=== PATIENT | female | born 1960 | race Caucasian/White ===

== ENCOUNTER 2016-09-10 20:08 | Inpatient (IN) | payer OTHER ==
[~2016-09-10] VITALS: Ht 165.1 cm; Wt 82.0 kg
[2016-09-10] VITALS (8 sets, daily range): BP systolic 93–116; BP diastolic 56–74; PULSE 100–133; RESP 21–42; O2SAT 90–96
--- NOTE | 2016-09-10 20:10 | ED.REPORT ---
HPI-General Illness Date of Service Sep 10, 2016 ED Provider: Dr. Stanton Pt is a 56 y/o female w/ a hx of MIx2 s/p stents x6, CHF, HTN, presenting to the ED via EMS c/o sudden onset SOB 1 hour ago. She was sitting watching TV when she experienced sudden onset SOB and called EMS. EMS reports the pt was at 60% O2 saturation on room air upon their arrival. She was placed on BiPAP with good oxygen re-saturation. She has been having shaking chills all day today but otherwise she feels normal. She denies CP, recent illness, fever, cough. She denies recent surgeries or long periods of immobilization. Her previous RI's were accompanied by similar symptoms. She had chicken noodle soup at 1300 today and believes there was too much salt in it. Nursing Notes Stated Complaint: SHORTNESS OF BREATH Nursing Notes Reviewed: Yes Allergies: Coded Allergies: No Known Allergies (Verified Allergy, Unknown, 12/26/14) General Time Seen by MD: 20:09 Chief Complaint Other (SOB) Hx Obtained From: Patient, EMS Arrived By: Ambulance Sudden in Onset?: Yes Onset Occurred: 1 - 4 hours ago Symptom Duration: Since onset Severity: Current: No pain currently Severity: Maximum: No pain Recent Healthcare: Previous diagnosis Similar Sx Previous: Yes Past Medical History Past Medical History RI x2 CAD s/p stents x6 CHF HTN Past Surgical History Cardiac stenting x6 Appendectomy Family History CAD Smoking History Former Smoker Social History Alcohol Use: 1-3 per day Drug Use: Denies drug use Ambulatory Status Independent Review of Systems Full Review of Systems Constitutional: Reports: Chills, Denies: Fever Respiratory: Reports: Shortness of breath, Denies: Non-productive cough Cardiovascular: Denies: Chest pain GI: Denies: Abdominal pain, Nausea, Vomiting Complete sys rev & neg: except as marked. Physical Exam Vital Signs Vital Signs Date Time Temp Pulse Resp B/P Pulse Ox O2 Delivery O2 Flow Rate FiO2 09/10/16 22:47 100 21 102/60 91 Nasal Cannula 4 09/10/16 22:03 107 22 99/62 96 BiPAP 09/10/16 21:43 118 29 94/67 92 BiPAP 09/10/16 20:58 120 30 94 BiPAP 50 09/10/16 20:57 31 94 50 09/10/16 20:54 127 93/56 1/7/17 20:37 124 33 108/65 91 BiPAP 09/10/16 20:14 37.9 133 42 116/74 90 BiPAP Initial VS: Reviewed Head / Eyes: Atraumatic, Normocephalic, PERRL ENT: Conjunctiva normal, No scleral icterus Neck: Supple, Full range of motion Abdomen / GI: Soft, Non-tender Extremities: Vascular intact, Neuro intact, No swelling, No tenderness Skin: Warm, Dry, No cyanosis Neurologic: Alert, Oriented, Nonfocal Psychiatric: Mood/affect normal, Behavior normal, Normal thought content General/Constitutional: Awake, Alert, Cooperative Distress / Hydration: Positive: Distress severe Respiratory / Chest: Atraumatic, No chest tenderness, No chest wall deformity Resp Distress / Stridor: Positive: Resp distress severe On BiPAP Diffuse wheezes and crackles throughout Cardiovascular: Regular rhythm, Heart sounds NL, No gallop, No murmurs, No rubs , Cap refill not delayed Heart Rate / Rhythm: Positive: Tachycardia Interpretation & Diagnostics Lab Results Interpretation Result Diagram: 09/10/16201409/10/16 2015 Test 09/10/16 20:15 09/10/16 21:15 09/10/16 23:06 White Blood Count 12.1th/mm3 (3.8-10.1) Red Blood Count 5.38mil/mm3 (3.90-5.20) Hemoglobin 16.4g/dL (12.0-15.6) Hematocrit 50.2% (35.0-46.0) Mean Corpuscular Volume 93.3fL (81-100) Mean Corpuscular Hemoglobin 30.5pg (27.0-35.0) Mean Corpuscular Hemoglobin Concent 32.7% (32.0-37.0) Red Cell Distribution Width 12.2% (12.3-15.4) Platelet Count 418bil/L (150-400) Neutrophils (%) (Auto) 87.5% (40-74) Lymphocytes (%) (Auto) 6.5% (14-46) Monocytes (%) (Auto) 3.9% (4-12) Eosinophils (%) (Auto) 1.7% (0-5) Basophils (%) (Auto) 0.2% (0-3) Sodium Level 141mEq/L (134-144) Potassium Level 4.2mEq/L (3.5-5.2) Chloride Level 101mEq/L (97-108) Carbon Dioxide Level 24mmol/L (18-29) Blood Urea Nitrogen 19mg/dL (6-24) Creatinine 0.90mg/dL (0.57-1.00) Estimat Glomerular Filtration Rate 92mL/min (>59) Glucose Level 165mg/dL (60-99) Calcium Level 9.2mg/dL (8.5-10.1) Magnesium Level 1.8mg/dL (1.6-2.6) Total Bilirubin 0.3mg/dL (0.0-1.2) Aspartate Amino Transf (AST/SGOT) 42U/L (0-50) Alanine Aminotransferase (ALT/SGPT) 45U/L (0-32) Alkaline Phosphatase 59U/L (25-150) Troponin T 0.010ug/L (0.0-0.011) Pro-B-Type Natriuretic Peptide 562.1pg/mL (0-287) Total Protein 7.6g/dL (6.4-8.4) Albumin 4.3g/dL (3.4-5.0) Hold Payan Top Tube Received (Received) Urine Color Dark yellow (YELLOW) Urine Appearance Cloudy (CLEAR,HAZY) Urine pH 6.0 (5.0-8.0) Urine Specific [place] 1.020 (1.003-1.035) Urine Protein Tracemg/dL (NEG,TRACE) Urine Glucose (UA) Negativemg/dL (NEGATIVE) Urine Ketones Negativemg/dL (NEGATIVE) Urine Occult Blood Small (NEGATIVE) Urine Nitrite Negative (NEGATIVE) Urine Bilirubin Negative (NEGATIVE) Urine Urobilinogen 1.0mg/dL (NORMAL) Urine Leukocyte Esterase Small (NEGATIVE) Urine RBC 3-10/hpf (0-2) Urine WBC 6-10/hpf (0-5) Urine Epithelial Cells Moderate/hpf (NONE-MOD) Urine Crystals None seen (NONE SEEN) Urine Bacteria Many/hpf (NONE-FEW) Urine Hyaline Casts None/lpf (NONE) Urine Granular Casts None seen (NONE SEEN) Urine Waxy Casts None seen (NONE SEEN) Urine Red Blood Cell Casts None seen (NONE SEEN) Urine White Blood Cell Casts None seen (NONE SEEN) Urine Mucus None seen (None Seen) Urine Trichomonas None seen (NONE SEEN) Urine Yeast None (NONE SEEN) Urine Culture Reflexed Indicated Hold Urine Received (Received) Lactic Acid Level 1.9mmol/L (0.4-2.0) Lab Results Interpretation: ABG: pH: 7.348 pCO2: 42.0 pO2: 74.6 cHCO3: 22.5 ECG Interpretation ECG Interpretation: Sinus tachycardia rate 133 ST depression diffuse leads consistent with ischemia When compared with prior dated 12/27/14, ischemic changes now present Time: 20:15 Interpreted by: ED physician X-Ray Chest Interpretation Chest Xray Interpretation: IMPRESSION: Left midlung and basilar pneumonia Dictated by: Jack Busby M.D. on 09/10/2016 at 20:47 Approved by: Jack Busby M.D. on 09/10/2016 at 20:47 Wet read: Strong suspicion for flash pulmonary edema in the setting of acute heart failure. View: Portable, 1 view Interpretation / Wet Read by: Wet read ED physician, Interpret - Radiologist Re-Eval/Medical Decision Med Decision/Clinical Course 20:55 picture is most consistent with acute pulmonary edema secondary to cardiac event/acute heart failure. History is very consistent with prior events both of which led to stenting. IV Lasix and IV nitroglycerin are started, blood pressure continues to drop with the IV nitroglycerin so it is discontinued at this point. Official chest x-ray read is suggestive of left lower lobe pneumonia we will go ahead and start ceftriaxone however I still think that this is more likely flash pulmonary edema given the clinical history and previous events. I am reluctant to give significant fluid at this point and suspect cardiac etiology rather than sepsis both her being considered. 2315 now off bipap, doing better. 92% on 4L labs and CXR are more suggestive of CAP at this time. On further questioning, she has been having chills today. recently with URI. She has had a "slight cough" for a couple days. NS 1L bolus added and abx expanded to IV zithromax for CAP At this time, ACS/STEMI less likely. Due to the description of the very abrupt onset of sx, I believe cycling enzymes remains appropriate with in pt stay for Left side multilobar pneumonia and acute hypoxic respiratory failure. Time of Eval: 20:55 Re-Evaluation/Progress Note: Pressure dropping to 90 systolic with nitro drip. Now stopping it. Time of Eval: 23:10 Patient Status: Condition improved, Moderate relief Re-Evaluation/Progress Note: Pt rechecked. No longer on BiPAP. She is feeling much better. O2 sat 90% on 4L nasal cannula. Respiratory rate 24-26. Heart rate 98. BP 100/66. Informed pt of need for admission. Pt understands and agrees with plan for admission. All questions addressed. Consultation : Referral / Consult Name: Tawana Cantrell MD Consulted With: Hospitalist Call Returned at: 23:25 Edger Liner: Will see patient, Agrees with eval, Agrees with plan, Accepts admit Counseled Regarding: Diagnosis, Lab results, Need for admission Discharge & Departure Primary Impression: Pneumonia involving left lung Pneumonia type: due to unspecified organism Lung location: lower lobe of lung Qualified Code: J18.9 - Pneumonia, unspecified organism Additional Impressions: Sepsis Sepsis type: sepsis due to unspecified organism Qualified Code: A41.9 - Sepsis, unspecified organism Acute respiratory distress Disposition: ADMITTED TO HOSPITAL Discharge Condition All VS Reviewed: Yes Condition: Stable Crit Care Except Billable Proc Time Spent: 75-104 minutes Services Performed: Patient management by me, Time spent at bedside, Reviewing test results, Reviewing imaging, Discussing patient care, Documentation in record Scribe Attestation Portions of this note were transcribed by Vladimir Leslie. I, Dr. Stanton personally performed the history, physical exam and medical decision-making; I reviewed and confirmed the accuracy of the information in the transcribed note. Signed by Tricia Calloway, 09/10/15 - [id number] Liudmila Stanton MD Sep 10, 2016 20:10 VLADIMIR LESLIE Sep 10, 2016 20:27
[2016-09-10] MEDS ORDERED: Albuterol 2.5 mg/3 mL Inhalation Solution NEB ONE (20:13)
[2016-09-10] MEDS ORDERED: Nitroglycerin 50 mg/250 mL D5W 50,000 MCG in IV Premix 1 EACH IV ONE (20:22)
[2016-09-10 20:35] LABS: BASOPHILS % (AUTO) 0.2 % (0-3); EOSINOPHILS % (AUTO) 1.7 % (0-5); MONOCYTES % (AUTO) 3.9 % (4-12); Mean Corpuscular Hemoglobin 30.5 pg (27.0-35.0); Mean Corpuscular Volume 93.3 fL (81-100); NEUTROPHILS % (AUTO) 87.5 % (40-74); Platelet Count 418 bil/L (150-400)
[2016-09-10] MEDS ORDERED: Furosemide 10 mg/mL 4 mL Inj IVPUSH ONE (20:35)
--- NOTE | 2016-09-10 20:49 | DRSVH ---
PROCEDURE: X-RAY CHEST ONE VIEW, PORTABLE ([id number]) INDICATIONS: acute dyspnea TECHNIQUE: One view of the chest was acquired. COMPARISON: None. FINDINGS: Surgical changes and devices: None. Lungs and pleura: No pleural effusions or pneumothorax. Left midlung and basilar consolidation. Mediastinum: Mediastinal contours appear normal. Heart size is normal. Bones and chest wall: No suspicious bony lesions. Overlying soft tissues appear unremarkable. IMPRESSION: Left midlung and basilar pneumonia Dictated by: Jack Busby M.D. on 09/10/2016 at 20:47 Approved by: Jack Busby M.D. on 09/10/2016 at 20:47
[2016-09-10] MEDS ORDERED: cefTRIAXone Inj 2,000 MG in IV Premix 1 EACH IV ONE (20:55)
[2016-09-10 21:00] LABS: TROPONIN T 0.01 ug/L (0.0-0.011)
[2016-09-10 21:11] LABS: Magnesium 1.8 mg/dL (1.6-2.6)
[2016-09-10 23:19] LABS: APPEARANCE,URINE CLOUDY (CLEAR,HAZY); COLOR,URINE DARK YELLOW (YELLOW); OCCULT BLOOD,URINE SMALL (NEGATIVE)
[2016-09-10] MEDS ORDERED: 0.9% Sodium Chloride 1,000 ML IV ONE (23:20)
[2016-09-10] MEDS ORDERED: Azithromycin Inj 500 MG in Dextrose 5% w/Vial Mate 250 ML IV ONE (23:20)
[2016-09-11] VITALS (10 sets, daily range): BP systolic 89–115; BP diastolic 58–82; PULSE 67–102; RESP 16–24; O2SAT 92–100
[2016-09-11] MEDS ORDERED: Alum-Mag Hydrox-Simeth 30 mL Suspension PO PRN
[2016-09-11] MEDS ORDERED: Albuterol 2.5 mg/3 mL Inhalation Solution NEB PRN
[2016-09-11] MEDS ORDERED: Polyethylene Glycol (PEG) 17 Gm Powder PO PRN
[2016-09-11] MEDS ORDERED: Furosemide 10 mg/mL 4 mL Inj IVPUSH ONE
--- NOTE | 2016-09-11 00:58 | NUR ---
Admit to [facility] rm [id number] Pt admitted to [facility] from ED via stretcher at 0040. Pt oriented to room and facility. Pt denies having pain. On 4L via NC. IV x2 patent. Will be on tele monitoring. Pt ambulates as SBA. in room with pt. Pt on droplet precautions. Will continue with frequent rounding.
--- NOTE | 2016-09-11 01:00 | PCM.HPMED ---
Subjective Date of Service Sep 11, 2016 Primary Provider: Admitting Physician: Tawana Cantrell MD Primary Care Physician: Nadia Metzger PA-C Attending Physician: Tawana Cantrell MD Admit Status: From the Emergency Department, Full Admit, [facility] Telemetry Chief Complaint: Acute onset of shortness of breath History of Present Illness: This is a 56-year-old female who has a history of WA 2 and stents 6. This occurred at [facility] about 5 years ago. Her telecommunications analyst here at [facility] is Dr. Lawton. She was in her usual state of health and watching Pager and suddenly became acutely short of breath. She also was having shaking chills. Was also observed by her . She denies any chest pain. EMS was called and she was found to have a room air sat of 60%. She was placed on BiPAP with good oxygen saturation she does admit to a mild cough today. His any recent sick contacts. She does note that she has had a history of acute congestive heart failure and did not present similarly to this. Her evaluation in the emergency room included a white count of 12.1 troponin of 0.010. There is significant for small leukocyte esterase negative nitrite 3-10 rbc's 6-10 WBCs moderate epithelial cells and many bacteria. Initial ABG was 7.348, PCO2 was 42, PO2 74.6 and bicarbonate 22.5. Chest x-ray revealed left mid lung and basilar pneumonic infiltrate. EKG revealed sinus tachycardia at a rate of [address] depressions noted diffusely. However I have not located the hard copy of his EKG. Review of Systems: All other review of systems are reviewed and are negative except for as in history of present illness. Patient denies any nausea vomiting or alteration in bowel movements or abdominal pain. Denies any urinary frequency or burning. Allergies Coded Allergies: No Known Allergies (Verified Allergy, Unknown, 12/26/14) Home Medications Med reconciliation is not available at the time of this dictation [facility] Past Medical History [place] x2 CAD s/p stents x6 CHF HTN Past Surgical History Cardiac stenting x6 Appendectomy Family History History of father with CABG at age 65 and multiple brothers with a history of hypertension Social History Hx Alcohol Use: No ("I quit drinking two months ago.") Hx Substance Use: No Smoking Status: Former Smoker Living Arrangement: with Family Exam Vital Signs Vital Sign - Last Date Time Temp Pulse Resp B/P Pulse Ox O2 Delivery O2 Flow Rate FiO2 09/10/16 22:47 100 21 102/60 91 Nasal Cannula 4 09/10/16 20:58 50 09/10/16 20:14 37.9 Intake and Output 09/10/16 09/10/16 09/11/16 Cumulative From/Thru 15:00 23:00 07:00 09/10/16 20:14 - 09/10/16 23:35 Intake Total 1000 ml 1000 ml Output Total 200 ml 200 ml Balance -200 ml 1000 ml 800 ml Intake IV Total 1000 ml 1000 ml Output Urine Total 200 ml 200 ml # Voids 2 2 Exam Constitutional: Middle-aged woman in mild respiratory distress Head: Normocephalic atraumatic Eyes: PERRLA DC EOMI Neck: Carotids 2+ over 4 without bruits Chest: Diffuse crackles on the left side and some at the right base Cor: Tachycardic S1-S2 without murmur Abdomen: Soft nontender bowel sounds present Extremities: No pedal edema noted Skin: No rashes Psych: Mood and affect are appropriate Neuro: Alert and oriented 3, motor and sensory are intact bilaterally Lab and Diagnostics Labs Laboratory Tests 72 Hours Test 09/10/16 20:15 09/10/16 21:15 09/10/16 23:06 White Blood Count 12.1th/mm3 (3.8-10.1) Red Blood Count 5.38mil/mm3 (3.90-5.20) Hemoglobin 16.4g/dL (12.0-15.6) Hematocrit 50.2% (35.0-46.0) Mean Corpuscular Volume 93.3fL (81-100) Mean Corpuscular Hemoglobin 30.5pg (27.0-35.0) Mean Corpuscular Hemoglobin Concent 32.7% (32.0-37.0) Red Cell Distribution Width 12.2% (12.3-15.4) Platelet Count 418bil/L (150-400) Neutrophils (%) (Auto) 87.5% (40-74) Lymphocytes (%) (Auto) 6.5% (14-46) Monocytes (%) (Auto) 3.9% (4-12) Eosinophils (%) (Auto) 1.7% (0-5) Basophils (%) (Auto) 0.2% (0-3) Sodium Level 141mEq/L (134-144) Potassium Level 4.2mEq/L (3.5-5.2) Chloride Level 101mEq/L (97-108) Carbon Dioxide Level 24mmol/L (18-29) Blood Urea Nitrogen 19mg/dL (6-24) Creatinine 0.90mg/dL (0.57-1.00) Estimat Glomerular Filtration Rate 92mL/min (>59) Glucose Level 165mg/dL (60-99) Calcium Level 9.2mg/dL (8.5-10.1) Magnesium Level 1.8mg/dL (1.6-2.6) Total Bilirubin 0.3mg/dL (0.0-1.2) Aspartate Amino Transf (AST/SGOT) 42U/L (0-50) Alanine Aminotransferase (ALT/SGPT) 45U/L (0-32) Alkaline Phosphatase 59U/L (25-150) Troponin T 0.010ug/L (0.0-0.011) Pro-B-Type Natriuretic Peptide 562.1pg/mL (0-287) Total Protein 7.6g/dL (6.4-8.4) Albumin 4.3g/dL (3.4-5.0) Hold Payan Top Tube Received (Received) Urine Color Dark yellow (YELLOW) Urine Appearance Cloudy (CLEAR,HAZY) Urine pH 6.0 (5.0-8.0) Urine Specific [place] 1.020 (1.003-1.035) Urine Protein Tracemg/dL (NEG,TRACE) Urine Glucose (UA) Negativemg/dL (NEGATIVE) Urine Ketones Negativemg/dL (NEGATIVE) Urine Occult Blood Small (NEGATIVE) Urine Nitrite Negative (NEGATIVE) Urine Bilirubin Negative (NEGATIVE) Urine Urobilinogen 1.0mg/dL (NORMAL) Urine Leukocyte Esterase Small (NEGATIVE) Urine RBC 3-10/hpf (0-2) Urine WBC 6-10/hpf (0-5) Urine Epithelial Cells Moderate/hpf (NONE-MOD) Urine Crystals None seen (NONE SEEN) Urine Bacteria Many/hpf (NONE-FEW) Urine Hyaline Casts None/lpf (NONE) Urine Granular Casts None seen (NONE SEEN) Urine Waxy Casts None seen (NONE SEEN) Urine Red Blood Cell Casts None seen (NONE SEEN) Urine White Blood Cell Casts None seen (NONE SEEN) Urine Mucus None seen (None Seen) Urine Trichomonas None seen (NONE SEEN) Urine Yeast None (NONE SEEN) Urine Culture Reflexed Indicated Hold Urine Received (Received) Lactic Acid Level 1.9mmol/L (0.4-2.0) Result Diagram: 09/10/16201409/10/162014 X-Rays, CTs and MRIs Patient Name: ELVIS FELIX MR#: [id number] Location: [facility] [place] Ordering Phys: Liudmila Stanton MD Date of Service: 09/10/162017 PROCEDURE: X-RAY CHEST ONE VIEW, PORTABLE ([id number]) INDICATIONS: acute dyspnea TECHNIQUE: One view of the chest was acquired. COMPARISON: None. FINDINGS: Surgical changes and devices: None. Lungs and pleura: No pleural effusions or pneumothorax. Left midlung and basilar consolidation. Mediastinum: Mediastinal contours appear normal. Heart size is normal. Bones and chest wall: No suspicious bony lesions. Overlying soft tissues appear unremarkable. IMPRESSION: Left midlung and basilar pneumonia Dictated by: Jack Busby M.D. on 09/10/2016 at 20:47 Approved by: Jack Busby M.D. on 09/10/2016 at 20:47 12-lead ECG Twelve-lead EKG is not located and will order a new one for my review. Assessment & Plan # Acute dyspnea with respiratory failure and hypoxia requiring initially BiPAP support, acute, present on admission Possible pneumonic infiltrate versus atypical pulmonary edema We will treat with IV Rocephin and azithromycin for first possibility check sputum studies Check PCR respiratory panel placed in droplet precautions We will also treat with IV Lasix for possible acute pulmonary edema Check serial troponins Check echocardiogram Repeat EKG We will also check stat CTA of chest PE protocol for further evaluation # Possible urinary tract infection Patient will be on IV Rocephin as above Send urine for culture # VT prophylaxis Placed on subcutaneous Lovenox # CODE STATUS Full code Pain Evaluation: Adequate Pain Control GI Prophylaxis: H2 marlene VTE Prophylaxis: Sub-Q Enoxaparin VTE Mechanical Devices: Intermittant Pneumatic CD Resuscitation Status: CPR: Attempt Resuscitation Time spent 40 minutes Tawana Cantrell MD Sep 11, 2016 01:00
[2016-09-11] MEDS: Sodium Chloride LOK Flush 10 mL Syringe IVFLUSH SCH ×4 (01:18→20:54)
[2016-09-11 01:20] LABS: BASOPHILS % (AUTO) 0.1 % (0-3); EOSINOPHILS % (AUTO) 0.2 % (0-5); MONOCYTES % (AUTO) 3.7 % (4-12); Mean Corpuscular Hemoglobin 30.6 pg (27.0-35.0); Mean Corpuscular Volume 94.1 fL (81-100); NEUTROPHILS % (AUTO) 89.4 % (40-74); Platelet Count 277 bil/L (150-400)
[2016-09-11 02:13] LABS: Magnesium 1.7 mg/dL (1.6-2.6)
[2016-09-11 02:17] LABS: TROPONIN T 0.219 ug/L (0.0-0.011)
--- NOTE | 2016-09-11 02:40 | NUR ---
Troponin Called recd from lab re TNI of 0.219. Pt asymptomatic. VS rechecked and stable. made aware-will recheck in the AM. Will continue to monitor.
--- NOTE | 2016-09-11 05:36 | NUR ---
Temp/LUNA pt c/o LUNA (01/11)and temp 38.8 noted. MD notified. PO Tylenol ordered, waiting on pharmacy Will continue with frequent rounding
[2016-09-11] MEDS ORDERED: Heparin 25K Unit/500mL 0.45 NS 25,000 UNIT in IV Premix 1 EACH IV SCH (06:20)
[2016-09-11] MEDS ORDERED: Heparin 5,000 Unit/mL Inj IVPUSH ONE ×2 (06:20→06:35)
[2016-09-11] MEDS ORDERED: Heparin 5,000 Unit/mL Inj IVPUSH PRN (06:20)
[2016-09-11 08:14] LABS: BASOPHILS % (AUTO) 0.1 % (0-3); EOSINOPHILS % (AUTO) 0.3 % (0-5); MONOCYTES % (AUTO) 6.1 % (4-12); Mean Corpuscular Hemoglobin 30.1 pg (27.0-35.0); Mean Corpuscular Volume 92.6 fL (81-100); NEUTROPHILS % (AUTO) 83.5 % (40-74); Platelet Count 250 bil/L (150-400)
--- NOTE | 2016-09-11 08:32 | DRSVH ---
PROCEDURE: CT ANGIO CHEST PULMONARY EMBOLISM ([id number]) INDICATIONS: dyspnea TECHNIQUE: After the administration of intravenous contrast, 2 mm thick sections acquired from the pulmonary api yash to the posterior costophrenic angles. 3-dimensional maximum intensity projection (MIP) coronal a nd sagittal reformats were then acquired through the thorax. For radiation dose reduction, the follo wing was used: automated exposure control, adjustment of mA and/or kV according to patient size. COMPARISON: No current chest x-rays within the PACS system. FINDINGS: Image quality: Excellent. Pulmonary arteries: Pulmonary arteries are normal in size, and demonstrate no intraluminal filling d efects to suggest central pulmonary embolism. Lungs and pleura: Left upper and lower moderate to prominent patchy areas of density are present cons istent with pneumonia. Right lung is nearly clear with some minimal infiltrate and subsegmental atele ctasis at the right base.. No pleural effusions or pneumothorax. Central and peripheral airways are patent. Mediastinum: Heart size is normal, without pericardial effusion. There are prominent right hilar and subcarinal lymph nodes. There is no old study to compare.. Thoracic aorta is normal in caliber and enhancement. Esophagus is normal in caliber, without hiatal hernia. Bones and chest wall: No suspicious bony lesions. Ribs and thoracic spine appear intact throughout. Thyroid gland is within normal limits. No axillary or supraclavicular adenopathy. Abdomen: Visualized upper abdominal solid organs appear normal in the early arterial phase of enhanc ement. IMPRESSION: 1. Extensive ground glass appearance in the left lung most consistent with pneumonia. Right lung is g enerally clear with a small amount of disease at the right base as well as subsegmental atelectasis a t the right base 2. Prominent right hilar and subcarinal lymph nodes of unknown etiology. Dictated by: Oleg Garcia M.D. on 09/11/2016 at 8:30 this report corresponds to the findings of e preliminary NSR report. Approved by: Oleg Garcia M.D. on 09/11/2016 at 8:30
[2016-09-11] MEDS: Heparin 25K Unit/500mL 0.45 NS 25,000 UNIT in IV Premix 1 EACH IV SCH (09:40)
[2016-09-11] MEDS ORDERED: POTA10TA12 PO (09:50)
[2016-09-11] MEDS ORDERED: CLOP75TA28 PO (09:50)
[2016-09-11] MEDS ORDERED: FURO-128 PO (09:50)
[2016-09-11] MEDS ORDERED: ATOR80TA77 PO (09:50)
[2016-09-11] MEDS ORDERED: CITA40TA13 PO (09:50)
[2016-09-11] MEDS ORDERED: METO-274 PO ×2 (09:50)
[2016-09-11] MEDS ORDERED: LISI-567 PO (09:50)
[2016-09-11] MEDS ORDERED: ASPI-973 PO (09:50)
[2016-09-11] MEDS ORDERED: FENO160T14 PO (09:50)
--- NOTE | 2016-09-11 10:12 | NUR ---
Social Work: Screening Data: Pt is a 56 y/o female admitted for pneumonia. Pt's PCP is Dr Metzger, pt's insurance is [facility]. EMR reviewed, pt discussed in rounds. No d/c planning needs anticipated at this time. TECHNICAL EXPERT will continue to follow if needs arise. Assessment: Pt who is independent at baseline. Plan: Pt will likely d/c home via POV when medically stable. No d/c planning needs anticipated at this time. TECHNICAL EXPERT will continue to follow if needs arise. DALILA Dean
[2016-09-11] MEDS ORDERED: 0.9% Sodium Chloride 1,000 ML IV ONE (11:55)
[2016-09-11] MEDS: Heparin 5,000 Unit/mL Inj IVPUSH PRN (15:48)
--- NOTE | 2016-09-11 16:43 | NUR ---
Heparin Drip Cardiac heparin drip started per protocol. aPTT drawn prior to administration. Current rated 1200units/hr (24 mls/hr).
--- NOTE | 2016-09-11 18:24 | PCM.PNMED ---
Subjective Date of Service Sep 11, 2016 Subjective Overnight: T38.8, APAP given Today: States she feels well, no SOB, CP. Tolerated echo. Denies any current cough. Tolerating po well. Exam Vital Signs Vital Sign - Last Date Time Temp Pulse Resp B/P Pulse Ox O2 Delivery O2 Flow Rate FiO2 09/11/16 17:35 36.9 72 18 108/62 94 Nasal Cannula 2.00 09/10/16 20:58 50 Intake and Output 09/10/16 09/10/16 09/11/16 Cumulative From/Thru 15:00 23:00 07:00 09/10/16 20:14 - 09/11/16 05:16 Intake Total 1350 ml 1350 ml Output Total 200 ml 1620 ml 1820 ml Balance -200 ml -270 ml -470 ml Intake Oral 350 ml 350 ml IV Total 1000 ml 1000 ml Output Urine Total 200 ml 1620 ml 1820 ml # Voids 2 2 Exam General: AAOx3; pleasant, cooperative; no acute distress HENT: Atraumatic; sclera anicteric; mucus membranes moist Neck: Soft, trachea midline Cardiac: Regular rate, regular rhythm Respiratory: Faint bibasilar crackles; adequate air flow all aguilar Abdomen: Soft, nondistended Extremities: No edema Skin: Warm and dry Neuro: CNII-XII grossly intact; speech normal; facial expressions symmetric Psych: Appropriate mood, affect, and responses to questioning Lab and Diagnostics Result Diagram: 09/11/16 0807 09/11/16 0100 X-Rays, CTs and MRIs Patient Name: ELVIS FELIX MR#: [id number] Location: [facility] [place] Ordering Phys: Liudmila Stanton MD Date of Service: 09/10/162017 PROCEDURE: X-RAY CHEST ONE VIEW, PORTABLE ([id number]) INDICATIONS: acute dyspnea TECHNIQUE: One view of the chest was acquired. COMPARISON: None. FINDINGS: Surgical changes and devices: None. Lungs and pleura: No pleural effusions or pneumothorax. Left midlung and basilar consolidation. Mediastinum: Mediastinal contours appear normal. Heart size is normal. Bones and chest wall: No suspicious bony lesions. Overlying soft tissues appear unremarkable. IMPRESSION: Left midlung and basilar pneumonia Dictated by: Jack Busby M.D. on 09/10/2016 at 20:47 Approved by: Jack Busby M.D. on 09/10/2016 at 20:47 12-lead ECG Twelve-lead EKG is not located and will order a new one for my review. Assessment & Plan Ms. Rissa Galeas is a pleasant 56 year old woman with history of CAD s/p multiple stent placements and ND, that presented to [facility] with acute onset SOB at rest without inciting factors. She was admitted for evaluation and treatment of acute respiratory failure. - Hospital day 2 Sepsis, acute, present on admission. Under therapy, improved - On admit: P133, WBC12.1, R42 - Suspected source: PNA - 1L NS bolus given - Treat underlying cause Acute hypoxemic respiratory failure, present on admission. Improving - Suspected etiologies included: PE, URI, ND, CHF exacerbation, PTX, PNA - CXR 09/10: Left midlung and basilar pneumonia - CTA 09/10: Extensive ground glass appearance in the left lung most consistent with pneumonia. Right lung is generally clear with a small amount of disease at the right base as well as subsegmental atelectasis at the right base; Prominent right hilar and subcarinal lymph nodes of unknown etiology. - Trend troponin - Treat underlying cause Elevated troponin of undetermined significance, likely acute, present on admission. Ongoing - May be demand ischemia vs NSTEMI - On admit: 0.010; repeated values elevated at 0.219, 0.237, 0.093 - Repeat in am - EKG in am - cardiology consulted; appreciate time and recommendations - Consider lexiscan when troponin normalize/decrease - Continue heparin gtt Suspected PNA, acute, present on admission. Under therapy - CXR as above - Resp PCR: NEGATIVE - Strep pneu Ur: negative - Abx: Ceftriaxone 2g q24h + azithromycin 500mg daily - PRN: - DVT: Hep gtt - GI: None - DIET: Heart healthy - CODE: FULL CODE Dispo: Likely to remain additional 1-2 days pending medical stability. No anticipated needs at this time. GI Prophylaxis: H2 marlene VTE Prophylaxis: Sub-Q Enoxaparin VTE Mechanical Devices: Venous Foot Pump Resuscitation Status: CPR: Attempt Resuscitation Attending Statement The patient was seen and examined together with Dr. Barakat on 09/11/2016 and I agree with the history, exam and plan as outlined in the note above. Ktaie Barakat DO Sep 11, 2016 18:24 German Stein MD Sep 12, 2016 09:12
[2016-09-11] MEDS ORDERED: 0.9% Sodium Chloride 250 ML ONE (20:04)
[2016-09-11] MEDS: cefTRIAXone Inj 2,000 MG in IV Premix 1 EACH IV SCH (20:09)
--- NOTE | 2016-09-11 20:29 | DRSVH ---
[facility] [address] [place] [address] Echocardiogram Report Name: ELVIS HUYNH MStudy Date: 09/11/2016 Height: 65 in Hospital Exam Location: [facility] Weight: 190 lb Gender: Female BSA: 1.9 m2 : 1960 Age: 56 yrs BP: 108/67 mmHg Reason For Study: Dyspnea Ordering Physician: HOSPITALIST [facility] Performed By: Cirilo Borges Referring Physician: FAVIAN ARRIAZA Interpretation Summary The left ventricle is mildly dilated. Left ventricular systolic function is moderately reduced. The ejection fraction is estimated to be 40-45%. There is akinesis along the mid/distal inferolateral, and hypokinesis along the anterior, part of apical, and mid and distal anteroseptal wall. Comparing to prior echo report, LVEF and LV wall motion are similar. Assessment of diastolic parameters indicates a relaxation abnormality of the left ventricle, consistent with normal filling pressures. The right ventricle is normal in size, thickness and function. Pulmonary artery pressures cannot be estimated because of the lack of a measurable TR jet velocity. The left atrium is mildly dilated. Right atrial size is normal. There is no significant valvular heart disease. The ascending aorta is mildly enlarged. Procedure: A two-dimensional transthoracic echocardiogram with color flow and Doppler was performed. The study quality was technically adequate. A contrast injection of Definity was performed to improve assessment of LV function. There is no prior echocardiogram noted for this patient. The patient was in normal sinus rhythm during the exam. The heart rate ranged between 75-80 bpm during the study. Left Ventricle: The left ventricle is mildly dilated. Left ventricular wall thickness is borderline increased. Left ventricular systolic function is moderately reduced. The ejection fraction is estimated to be 40-45%. There is akinesis along the mid/distal inferolateral, and hypokinesis along the anterior, part of apical, and mid and distal anteroseptal wall. Assessment of diastolic parameters indicates a relaxation abnormality of the left ventricle, consistent with normal filling pressures. Right Ventricle: The right ventricle is normal in size, thickness and function. Atria: The left atrium is mildly dilated. Right atrial size is normal. The interatrial septum is intact with no evidence for an atrial septal defect. Mitral Valve: The mitral valve is grossly normal. There is no mitral regurgitation noted. Aortic Valve: The aortic valve is grossly normal. No aortic regurgitation is present. Tricuspid Valve: The tricuspid valve is not well visualized, but is grossly normal. Pulmonary artery pressures cannot be estimated because of the lack of a measurable TR jet velocity. Pulmonic Valve: The pulmonic valve is not well seen, but is grossly normal. There is no pulmonic valvular regurgitation. There is no significant valvular heart disease. Great Vessels: The aortic root is normal size. The ascending aorta is mildly enlarged. The aortic arch is at the upper limits of normal in size. The pulmonary artery is normal size. The IVC is of normal diameter and collapses greater than 50% with a sniff. This suggests a low right atrial pressure of 3 mm Hg. Pericardium/ Pleura There is no pericardial effusion. There is no pleural effusion. MMode/2D Measurements & Calculations LVIDd: 5.5 cm RA long axis: 4.3 cm LVOT diam: 2.1 cm LVIDs: 4.1 cmLA A2 area: 19.8 cm AoV Openin.6 cm FS: 26.4 % LA A4 area: 18.8 cm RA area: 12.4 cm Ao root diam: 3.0 cm EPSS: 0.69 cmLA length (vol) RA vol: 30.4 ml asc Aorta Diam IVSd: 1.0 cm RA : 15.7 ml/m2 LVPWd LA vol: 70.2 ml Ao Arch Diam : 0.9cm LA vol index (Proximal trans.) : 36.3 ml/m2 EDV(MOD-sp2) LV mason. diameter/BSA LV sys. diameter/BSA : 135.7 ml (cm/m^2): 2.9 (cm/m^2): 2.1 Doppler Measurements & Calculations Ao V2 max: 133.6 cm/secMV E max miguel MV E/A: 0.87 PA V2 max Ao max P.1 mmHg : 75.9 cm/sec Med Peak E' Miguel : 91.6 cm/sec Ao mean P.2 mmHg MV A max miguel PA mean PG LVOT Max Miguel : 87.3 cm/sec E/E' med: 15.0 : 1.8 mmHg : 98.4 cm/sec Lat Peak E' Miguel KANE(I,D): 2.5 cm E/E' lat: 13.4 sev ratio: 0.73 MV A dur: 0.11 sec MV dec time: 0.21 sec Ao V2 mean LV V1 max PG PA V2 mean : 100.1 cm/sec : 65.2 cm/sec Ao V2 VTI: 25.6 cm LV V1 VTI: 18.6 cmPA pr(Accel) : 49.4 mmHg KANE(V,D): 2.5 cm2 KANE indexed to BSA E/e' average (cm^2/m^2): 1.3 : 14.2 Reading Physician:CASA
--- NOTE | 2016-09-11 20:30 | PCM.CHPCAR ---
Consult Subjective Date of service Sep 11, 2016 Date of admit Sep 11, 2016 at 00:00 Provider Requesting Consult Requesting Provider: LORENA BAEZ HOSPITALIST Primary Care Physician Primary Care Provider: Nadia Metzger PA-C Chief Complaint Acute SOB History of Present Illness This is a 56 y/o female with known CAD. She was seen by a mexican food maker back in early 2011 at [facility] for NSTEMI. She was smoking up to this point but quit. She was taken to the vat house laborer and her left ventriculogram showed an EF around 40% with LVWMAs. She had a total occluded OM with distal filling indicative of collaterals. This was fixed with PCI and her other significant lesions in her LAD and RCA were left alone and the idea was to proceed with an outpatient stress test. But, apparently she came back in Fall of 2011 with another NSTEMI and had multiple REESE to her LAD and RCA. She has been fine since then. She went to see Dr. Lawton to establish with mexican food maker in 2013 but she has not followed up with him since. She was watching the [employer] game last night and apparently developed sudden SOB at rest. She present to our ER and her CXR was completed and was thought that she was having flash pulmonary edema. She eventually was sent for CT scan to rule PE which was negative but lung aguilar showed that findings were more consistent with pneumonia than CHF. When she first arrived she was only saturating around 60%. She was started on BiPAP and her O2 sats improved to >90%. Her EKG showed some subtle ST depressions in multiple leads but was not particularly impressive. She was initially started on IV nitro and IV Lasix since it was thought her presentation was consistent with acute CHF but her BP dropped, so her IV nitro was discontinued. She has been started on IV abx. Microbiology lab work shows no evidence for influenza. She denied any chest pain during this presentation. On further interrogation by hospitalist, she does admit to chills and cough yesterday. Patient works on a farm and up to yesterday she had no complaints of SOB or chest pain on exertion. Review of Systems Review of Systems All other review of systems are reviewed and are negative except for as in history of present illness. PMH Past Medical History NSTEMI x2 CAD s/p stents x6 (REESE x1 to OM, REESE x3 to LAD, REESE x2 to RCA) Ischemic cardiomyopathy HTN Hyperlipidemia Obesity Scheduled Aspirin (Aspirin) 81 Mg Tablet 81 MG PO MORNING (Reported) Atorvastatin Calcium (Atorvastatin Calcium) 80 Mg Tablet 80 MG PO HS (Reported) Citalopram (Citalopram) 40 Mg Tablet 20 MG PO DAILY (Reported) Clopidogrel (Clopidogrel) 75 Mg Tablet 75 MG PO HS (Reported) Fenofibrate (Fenofibrate) 160 Mg Tablet 160 MG PO HS (Reported) Furosemide (Lasix) 40 Mg Tablet 40 MG PO DAILY (Reported) Lisinopril (Lisinopril) 20 Mg Tablet 20 MG PO MORNING (Reported) Metoprolol Succinate ER (Metoprolol Succinate ER) 100 Mg Tab.er.24h 50 MG PO MORNING (Reported) Metoprolol Succinate ER (Metoprolol Succinate ER) 100 Mg Tab.er.24h 100 MG PO HS (Reported) Potassium Chloride ER (Potassium Chloride ER) 10 Meq Tablet 20 MEQ PO DAILY ( Reported) Current Inpatient Medications Current Medications Enoxaparin Sodium 40 mg DAILY SUBQ; Start 09/11/16 at 08:30; Stop 09/11/16 at 08: 30; Status DC Albuterol 2.5 mg 2.5 mg Q2H PRN NEB; Start 09/11/16 at 00:00 Ceftriaxone Sodium/Dextrose 2000 mg/Premix 50 ml @ 100 mls/hr Q24H IV; Start at 21:00 Azithromycin/ Dextrose/Water 250 ml @ 250 mls/hr Q24H IV; Start 09/11/16 at 23: 00 Sodium Chloride 10 ml NADER IVFLUSH Last administered on 09/11/16 01:18; Admin Dose 10 ML; Start 09/11/16 at 00:30 Al Hydrox/Mg Hydrox/Simethicone 30 ml Q6H PRN PO; Start 09/11/16 at 00:00 Senna 17.2 mg BID PRN PO; Start 09/11/16 at 00:00 Polyethylene Glycol 17 gm DAILY PRN PO; Start 09/11/16 at 00:00 Acetaminophen 650 mg Q4H PRN PO Last administered on 09/11/16 05:49; Admin Dose 650 MG; Start 09/11/16 at 05:45 Heparin Sodium (Porcine) Per Protocol for a... PRN PRN IVPUSH; Start 09/11/16 at 06:20; Stop 09/11/16 at 06:38; Status DC Heparin Sodium (Porcine) Per Protocol for a... PRN PRN IVPUSH; Start 09/11/16 at 06:35 Allergies: Coded Allergies: No Known Allergies (Verified Allergy, Unknown, 12/26/14) Family History Family History There is no family history of premature coronary artery disease. Father Blood clot(s) - lungs at 77 (cause of ); Mother Hypertension, brain aneurysm at 69 Social History Hx Alcohol Use: No ("I quit drinking two months ago.")Hx Substance Use: No Smoking Status: Former Smoker Living Arrangement: with Family Exam Vital Signs Vital Sign - Last Date Time Temp Pulse Resp B/P Pulse Ox O2 Delivery O2 Flow Rate FiO2 09/11/16 10:09 78 09/11/16 09:04 37.0 20 89/58 94 Nasal Cannula 2.00 09/10/16 20:58 50 Intake and Output 09/10/16 09/10/16 09/11/16 Cumulative From/Thru 15:00 23:00 07:00 09/10/16 20:14 - 09/11/16 05:16 Intake Total 1350 ml 1350 ml Output Total 200 ml 1620 ml 1820 ml Balance -200 ml -270 ml -470 ml Intake Oral 350 ml 350 ml IV Total 1000 ml 1000 ml Output Urine Total 200 ml 1620 ml 1820 ml # Voids 2 2 Objective Constitutional: Middle-aged woman in mild respiratory distress Head: Normocephalic atraumatic Eyes: PERRLA DC EOMI Neck: Carotids 2+ over 4 without bruits Chest: Diffuse crackles on the left side and some at the right base Cor: Tachycardic S1-S2 without murmur Abdomen: Soft nontender bowel sounds present Extremities: No pedal edema noted Skin: No rashes Psych: Mood and affect are appropriate Neuro: Alert and oriented 3, motor and sensory are intact bilaterally General: Pleasant Cooperative Mildly obese Skin: Warm & dry to touch Head: Normocephalic Eye: EOMS intact No arcus or xanthelasma Neck: Nuchal obesity:JVP assess difficult No bruits Ears, Nose & Throat: Ears no gross abnormalities Nose no gross abnormalities Chest: Rhonchi Cardiac: Regular rhythm No murmurs Pulses: Pulses full/equal all extremities Abdomen: Soft, non-distended, non-tender Obese Extremities: Warm w/o deformities,erythema noted Neurological: Alert & oriented No gross motor or sensory deficits Psychological: Affect & interaction appropriate Lab and Diagnostics Labs CBC Test 09/11/16 08:07 White Blood Count 6.8th/mm3 (3.8-10.1) Red Blood Count 4.58mil/mm3 (3.90-5.20) Hemoglobin 13.8g/dL (12.0-15.6) Hematocrit 42.4% (35.0-46.0) Mean Corpuscular Volume 92.6fL (81-100) Mean Corpuscular Hemoglobin 30.1pg (27.0-35.0) Mean Corpuscular Hemoglobin Concent 32.5% (32.0-37.0) Red Cell Distribution Width 12.3% (12.3-15.4) Platelet Count 250bil/L (150-400) Neutrophils (%) (Auto) 83.5% (40-74) Lymphocytes (%) (Auto) 9.9% (14-46) Monocytes (%) (Auto) 6.1% (4-12) Eosinophils (%) (Auto) 0.3% (0-5) Basophils (%) (Auto) 0.1% (0-3) CMP Test 09/10/16 20:15 09/10/16 23:06 09/11/16 01:00 09/11/16 06:15 Pro-B-Type Natriuretic Peptide 562.1pg/mL Hold Payan Top Tube Received Lactic Acid Level 1.9mmol/L Sodium Level 141mEq/L Potassium Level 3.7mEq/L Chloride Level 103mEq/L Carbon Dioxide Level 23mmol/L Blood Urea Nitrogen 20mg/dL Creatinine 0.90mg/dL Estimat Glomerular Filtration Rate 92mL/min Glucose Level 145mg/dL Calcium Level 8.0mg/dL Magnesium Level 1.7mg/dL Total Bilirubin 0.2mg/dL Aspartate Amino Transf (AST/SGOT) 33U/L Alanine Aminotransferase (ALT/SGPT) 37U/L Alkaline Phosphatase 43U/L Total Protein 6.1g/dL Albumin 3.5g/dL Procalcitonin 4.30ng/mL Troponin T 0.237ug/L Triglycerides Level 106mg/dL Cholesterol Level 112mg/dL LDL Cholesterol, Calculated 48.800mg/dL VLDL Cholesterol 21.200mg/dL HDL Cholesterol 42mg/dL Cholesterol/HDL Ratio 2.67 Result Diagram: 09/11/16 0807 09/11/16 0100 X-Rays, CTs and MRIs PROCEDURE: CT ANGIO CHEST PULMONARY EMBOLISM ([id number]) INDICATIONS: dyspnea TECHNIQUE: After the administration of intravenous contrast, 2 mm thick sections acquired from the pulmonary apices to the posterior costophrenic angles. 3-dimensional maximum intensity projection (MIP) coronal and sagittal reformats were then acquired through the thorax. For radiation dose reduction, the following was used: automated exposure control, adjustment of mA and/or kV according to patient size. COMPARISON: No current chest x-rays within the PACS system. FINDINGS: Image quality: Excellent. Pulmonary arteries: Pulmonary arteries are normal in size, and demonstrate no intraluminal filling defects to suggest central pulmonary embolism. Lungs and pleura: Left upper and lower moderate to prominent patchy areas of density are present consistent with pneumonia. Right lung is nearly clear with some minimal infiltrate and subsegmental atelectasis at the right base.. No pleural effusions or pneumothorax. Central and peripheral airways are patent. Mediastinum: Heart size is normal, without pericardial effusion. There are prominent right hilar and subcarinal lymph nodes. There is no old study to compare.. Thoracic aorta is normal in caliber and enhancement. Esophagus is normal in caliber, without hiatal hernia. Bones and chest wall: No suspicious bony lesions. Ribs and thoracic spine appear intact throughout. Thyroid gland is within normal limits. No axillary or supraclavicular adenopathy. Abdomen: Visualized upper abdominal solid organs appear normal in the early arterial phase of enhancement. IMPRESSION: 1. Extensive ground glass appearance in the left lung most consistent with pneumonia. Right lung is generally clear with a small amount of disease at the right base as well as subsegmental atelectasis at the right base 2. Prominent right hilar and subcarinal lymph nodes of unknown etiology. Date of Service: 09/10/162017 PROCEDURE: X-RAY CHEST ONE VIEW, PORTABLE ([id number]) INDICATIONS: acute dyspnea TECHNIQUE: One view of the chest was acquired. COMPARISON: None. FINDINGS: Surgical changes and devices: None. Lungs and pleura: No pleural effusions or pneumothorax. Left midlung and basilar consolidation. Mediastinum: Mediastinal contours appear normal. Heart size is normal. Bones and chest wall: No suspicious bony lesions. Overlying soft tissues appear unremarkable. IMPRESSION: Left midlung and basilar pneumonia 12-lead ECG Sinus tachycardia with ST depressions and wide QRS. Assessment & Plan Problems: (1) Chronic left ventricular systolic dysfunction Plan: Echocardiogram shows no significant changes since prior echo study on 2011. She has chronic LV wall motion abnormalities and no significant valvular heart disease. She is much more comfortable in comparison to last night when she first came in. Her EKG does not indicate any significant ischemia. Her troponins have increased since the initiation of her acute respiratory event. I suspect this is more of a demand ischemic event more so than acute coronary syndrome. Based on her coronary angiogram reports she has diffuse disease elsewhere in her epicardial coronaries which could have contributed to her elevated troponins during her acute respiratory event. I would recommend a Lexiscan sestamibi just prior to discharge or even possibly as an outpatient depending on her hospital course. Continue with IV heparin for 48 hours and resume her preadmission heart medications. She should perform her Lexiscan sestamibi with beta blockers on board to see if her medications are effective in controlling her ischemic heart disease. She has an appointment to see Dr. Lawton in early October. Status: Chronic ICD Code: I51.9 (2) Pneumonia Qualifiers: Pneumonia type: due to unspecified organism Laterality: bilateral Plan: Most likely the culprit for causing her acute respiratory event. Hospitalist is treating her with IV abx. Once her troponins have started to come down, then consider a Lexiscan sestamibi to evaluate her coronary physiology. Again, she should be on beta blockers and other heart medications to assess the efficacy of her medications. Status: Acute ICD Code: J18.9 (3) CAD (coronary artery disease) Qualifiers: Coronary Disease-Associated Artery/Lesion type: [place] artery [place] vs. transplanted heart: [place] heart Associated angina: without angina Qualified Code: I25.10 - Atherosclerotic heart disease of [place] coronary artery without angina pectoris Status: Chronic ICD Code: I25.10 (4) Multi-vessel coronary artery stenosis Status: Chronic ICD Code: I25.10 (5) Presence of stent in coronary artery Plan: 3 REESE to LAD 2 REESE to RCA 1 REESE to OM Status: Chronic ICD Code: Z95.5 (6) Hyperlipidemia Qualifiers: Hyperlipidemia type: Mixed hyperlipidemia Qualified Code: E78.2 - Mixed hyperlipidemia Plan: Continue with atorvastatin 40-80 mg po qhs. Status: Chronic ICD Code: E78.5 (7) Hypertension Qualifiers: Hypertension type: essential hypertension Status: Chronic ICD Code: I10 Pain Evaluation: Adequate Pain Control VTE Prophylaxis: Sub-Q Enoxaparin VTE Mechanical Devices: Venous Foot Pump Resuscitation Status: CPR: Attempt Resuscitation Time spent 80 minutes Copies to: Nadia Metzger PA-C; Lou Anna MD, Oscar J MD Sep 11, 2016 10:54
[2016-09-11] MEDS ORDERED: Azithromycin Inj 500 MG in Dextrose 5% w/Vial Mate 250 ML IV SCH (23:00)
[2016-09-12] VITALS (10 sets, daily range): BP systolic 125–161; BP diastolic 72–84; PULSE 75–97; RESP 16–20; O2SAT 92–97
[2016-09-12] MEDS: Heparin 5,000 Unit/mL Inj IVPUSH PRN ×3 (02:13→23:09)
--- NOTE | 2016-09-12 02:23 | NUR ---
Sats/fever/hep gtt SpO2 in low to mid 90s on 2L O2 via NC. denies SOB at rest or when ambulating. has nonproductive cough. Pt had a fever of 38.8. cool compress and tylenol given. Temp went down to 37.7. IV ABT given per order. Heparin bolus given and gtt was titrated per protocol. no s/s of bleeding at this time.
[2016-09-12 06:59] LABS: BASOPHILS % (AUTO) 0.2 % (0-3); EOSINOPHILS % (AUTO) 2.1 % (0-5); MONOCYTES % (AUTO) 9.6 % (4-12); Mean Corpuscular Hemoglobin 30.3 pg (27.0-35.0); Mean Corpuscular Volume 94.9 fL (81-100); NEUTROPHILS % (AUTO) 69.2 % (40-74); Platelet Count 193 bil/L (150-400)
[2016-09-12 07:20] LABS: Phosphorus 2.1 mg/dL (2.5-4.9)
[2016-09-12] MEDS: Sodium Chloride LOK Flush 10 mL Syringe IVFLUSH SCH ×3 (08:23→22:57)
[2016-09-12] MEDS: Heparin 25K Unit/500mL 0.45 NS 25,000 UNIT in IV Premix 1 EACH IV SCH (08:30)
--- NOTE | 2016-09-12 14:02 | PCM.PNMED ---
Subjective Date of Service Sep 12, 2016 Adriel Bishop had chills with night sweats overnight in addition to a temperature of 38.3 while on Ceftriaxone and Azithromycin. She denies any sputum production. Exam Vital Signs Vital Sign - Last Date Time Temp Pulse Resp B/P Pulse Ox O2 Delivery O2 Flow Rate FiO2 09/12/16 13:15 37.1 75 20 149/84 97 Nasal Cannula 1.50 09/10/16 20:58 50 Intake and Output 09/11/16 09/11/16 09/12/16 Cumulative From/Thru 15:00 23:00 07:00 09/10/16 20:14 - 09/12/16 06:58 Intake Total 2470 ml 550 ml 4370 ml Output Total 1000 ml 1000 ml 3820 ml Balance 1470 ml -450 ml 550 ml Intake Oral 1470 ml 550 ml 2370 ml IV Total 1000 ml 2000 ml Output Urine Total 1000 ml 1000 ml 3820 ml # Voids 2 # Bowel Movements 1 1 Exam General: Well appearing female resting comfortably in her bed upon my entering the room. No acute distress. Supplemental oxygen via nasal cannula at 1.5L/h. No gasping or tripoding. No accessory muscle use HEENT: moist mucus membranes. Sclera anicteric Cardiac: RRR, no murmur, rub, or gallop appreciated Respiratory: Good inspiratory effort. No wheezes or rhonchi. Left sided crackles present. Extremities: No clubbing, cyanosis, or edema bilaterally Neuro: Awake, alert and oriented. Moves all 4 extremities with ease. Able to sit up completely without any assistance. IVs and Medications Medications Reviewed: Medications were reviewed in detail Lab and Diagnostics Result Diagram: 09/12/16 0632 09/12/16 0632 Microbiology Respiratory PCR negative Strep pneumo urine Ag negative X-Rays, CTs and MRIs PROCEDURE: X-RAY CHEST ONE VIEW, PORTABLE ([id number]) FINDINGS: Surgical changes and devices: None. Lungs and pleura: No pleural effusions or pneumothorax. Left midlung and basilar consolidation. Mediastinum: Mediastinal contours appear normal. Heart size is normal. Bones and chest wall: No suspicious bony lesions. Overlying soft tissues appear unremarkable. IMPRESSION: Left midlung and basilar pneumonia Dictated by: Jack Busby M.D. on 09/10/2016 at 20:47 Approved by: Jack Busby M.D. on 09/10/2016 at 20:47 Cardiac Echo Impressions Echo with EF of 40-45%, unchanged from prior Echo. Assessment & Plan Edna is a 56yo female with history of CAD s/p multiple stent placements that presented to [facility] with acute onset dyspnea at rest without inciting factors. She was admitted for evaluation and treatment of acute respiratory failure. Today, she has admitted to significant chills and night sweats. She was febrile at 01: 08 today at 38.3 while on ceftriaxone and azithromycin. Additionally, she was found to have a prolonged QT. Hospital day#3 1. Community- acquired pneumonia, acute - Symptoms and imaging indicative of left sided pneumonia - Ceftriaxone 2g q24h + doxycycline. Azithromycin discontinued given the QT prolongation - Infectious disease consultation requested, appreciate Dr Zarco's expertise as she has had a fever while on antibiotic therapy 2. Acute hypoxemic respiratory failure, present on admission. Improving - Likely secondary to pneumonia. - Wean supplemental oxygen as tolerated 3. Elevated troponin - Likely due to demand - On admit: 0.010; repeated values elevated at 0.219, 0.237, 0.093 - cardiology consulted and [facility] - Continue heparin gtt for another 24hours to complete 48hours of therapy - Restart metoprolol succinate at home dose of 100mg qHS and home statin dose 4. Sepsis due to pneumonia, present on admission. Resolved - On admit: HR 133, WBC 12.1, RR42, no longer meets sepsis criteria - Treating her pneumonia Dispo: Likely to remain additional 1-2 days pending improvement of her pneumonia. GI Prophylaxis: H2 marlene VTE Prophylaxis: Other (On a heparin drip currently) VTE Mechanical Devices: Venous Foot Pump Resuscitation Status: CPR: Attempt Resuscitation Attending Statement The patient was seen and examined together with Dr. Nesbitt on 09/12/2016 and I agree with the history, exam and plan as outlined in the note above. Teresita Nesbitt DO Sep 12, 2016 14:02 German Stein MD Sep 12, 2016 15:20
--- NOTE | 2016-09-12 19:02 | CONS ---
[address] [address] CONSULTATION REPORT PATIENT: ELVIS HUYNH : 1960 MR#: [id number] ADMIT: 09/11/2016 JOB ID: [id number] DATE OF SERVICE: 09/12/[address] Stein for this timely consult. REASON FOR CONSULTATION: Fever and possible pneumonia. HISTORY OF PRESENT ILLNESS: The patient is a 56-year-old woman with a complicated underlying history of heart disease including history of myocardial infarction, coronary artery disease with stents and some CHF with an ejection fraction about 40%. She has had a least one episode of pulmonary edema in the past. The patient reports she was in her usual state of pretty good health watching the [employer] game on September 10 when she developed the abrupt onset of shortness of breath associated with chills and subsequently fever. This was of sudden onset and the fevers, chills, and shortness of breath was almost violent in its intensity. The patient also noticed some crackling particularly on the left side of her chest and was concerned that she might be having another coronary or cardiopulmonary event and so was evaluated and admitted through the emergency department at that time. The diagnosis of presumptive left-sided pneumonia was made based on the findings of a CT angiogram with some extensive left-sided ground-glass infiltrates in association with her fever and chills. The patient was also evaluated by Cardiology as her troponins had bumped up, but they felt this was more a demand ischemia pattern rather than a primary myocardial infarction with ischemia. In any event, the patient was cultured and started on appropriate antibiotics including ceftriaxone and azithromycin. Azithromycin was subsequently switched to doxycycline for the atypical coverage because the patient was found to have a prolonged QT interval. The patient tells us today that after 48 hours in the hospital she has improved somewhat, and that she is having moderating fevers, chills, and shortness of breath. She continues to note some crackles or shortness of breath above baseline, however, but she has no productive cough whatsoever and, in general, is feeling a bit better. She also notes that at one point during the past 48 hours she had an episode of vomiting which has not recurred and otherwise she is free of or GI symptoms. PAST MEDICAL HISTORY: 1. Organic heart disease; a. Coronary artery disease with myocardial infarction and stents. b. CHF. 2. Hypertension. 3. Past history of smoking. SOCIAL HISTORY: The patient is an ex-smoker, having quit five years ago. She is an ex-drinker, having quit a couple of months ago. She lives with her on an estate in [place] where they have horses, chickens and dogs and they spend a good deal of time with those animals as well as boating and crabbing. She has not traveled distantly recently. FAMILY HISTORY: Negative for tuberculosis. REVIEW OF SYSTEMS: At this point, the patient has no headache but does have a bit of a posterior neck pain secondary to uneven pillows. No acute visual change, sore throat, dysphagia, or stiff neck. She feels a bit short of breath and, as noted, she has subjective sensation and crackles when she inspires but no real cough and no chest pain at this point. No nausea, vomiting, diarrhea. No dysuria, urgency, frequency, or flank pain. No skin rash. She notes that she has a jennifer complexion at baseline. PHYSICAL EXAMINATION: Reveals an afebrile woman. Temperature 37.1. Note that she was febrile to 39 degrees within her 1st 12 hours in the hospital. During her next 24 hours in the hospital, her T-max was 38.8 and since 2 a.m. this morning or over the past 12 hours or so, she has been afebrile. As mentioned, temp now 37.1, pulse 75, respiratory rate 20, blood pressure 149/84, saturating well on 1.5 L. She is awake, alert, in no acute distress. No head trauma. Sinuses normal. Eyes without conjunctivitis. Nose normal. Oral cavity without thrush or pharyngitis. Teeth in fair repair. Neck without adenopathy or evident JVD. Lungs with some crackles at the left base in particular and a handful on the right side as well. Cardiac tones: Regular rate and rhythm without notable murmur. Abdomen soft, nontender, without organomegaly. She does not have a Marina catheter. She has 1+ pitting edema right around the ankles but not elsewhere. There is no evidence for cellulitis, no skin breakdown and she is neurologically intact. LABORATORIES: Include white count 5300, down from 12,000 on admission. Differential white blood count is completely normal. Creatinine is 0.63. Troponin 0.04. Procalcitonin was 4.3 yesterday, 3.5 today. Urinalysis 6-10 white cells. Urine culture with greater than 100,000 gram-negative rods thought to be E. coli. MRSA screen is pending. Pneumococcal and urine Legionella antigens are negative. Respiratory viral PCR panel negative and blood cultures negative. IMAGING: Was reviewed on the view screen. There is a CT angio which shows ground-glass opacities on the left which the radiologist states are compatible with pneumonia. This is a very diffuse process. IMPRESSION: This patient presents with some demand ischemia and congestive heart failure which may account for some of the ground-glass infiltrates on the left. Her history would be suggestive of an abrupt onset of pneumococcal pneumonia given the dramatic start of the fevers and chills during the football game, but we have been unable to prove that diagnosis by blood culture or urine antigen. Nonetheless, I think it is reasonable to continue treatment for community-acquired pneumonia as there could be some pneumococcal or other bacterial process underlying what appears to be some changes on the left compatible with unilateral pulmonary edema. The possibility of a viral infection not detected by our PCR panel exists as well. RECOMMENDATIONS: 1. I discussed this case in detail with Dr. Stein and with his team. 2. I agree with the change from azithromycin or doxy. 3. I would not broaden or change antibiotics at this point, but rather would sit tight and expect that the patient will defervesce in the next 24-48 hours. 4. Once her fevers have resolved, she can probably be discharged on doxycycline alone to finish a seven day or so course of therapy. Thank you very much for this consult. Will follow closely with you.
[2016-09-12] MEDS: Doxycycline 100 mg/100 mL D5W IV SCH ×2 (20:32)
[2016-09-12] MEDS: MeTOProlol XL 50 mg ER24 Tablet PO SCH (20:33)
[2016-09-12] MEDS: cefTRIAXone Inj 2,000 MG in IV Premix 1 EACH IV SCH (22:57)
[2016-09-13] VITALS (10 sets, daily range): BP systolic 136–180; BP diastolic 80–98; PULSE 77–108; RESP 16–36; O2SAT 90–99
[2016-09-13] MEDS ORDERED: Furosemide 10 mg/mL 4 mL Inj IVPUSH ONE (04:35)
--- NOTE | 2016-09-13 05:06 | NUR ---
SOB Pt called this RN c/o SOB at rest and "hearing fluids in lungs". Lungs sounds have crackles throughout with auscultation. SpO2 in mid 80s on 2L; low 90s on 4L. Pt couldn't get comfortable and anxious. was notified and came up to assess pt. IV lasix given. Pt has been using BSC due to SOB. will closely monitor pt's respiratory status and urine output after lasix. Addendum: 09/13/16 at 0641 by PHILLIP ROMAN RN had 1500mL urine out after getting IV lasix. Pt reported SOB is almost resolved. able to lay flatter in bed.
[2016-09-13] MEDS: Heparin 25K Unit/500mL 0.45 NS 25,000 UNIT in IV Premix 1 EACH IV SCH (06:23)
[2016-09-13 06:31] LABS: BASOPHILS % (AUTO) 0.2 % (0-3); EOSINOPHILS % (AUTO) 1.6 % (0-5); MONOCYTES % (AUTO) 2.9 % (4-12); Mean Corpuscular Hemoglobin 30.4 pg (27.0-35.0); Mean Corpuscular Volume 92.6 fL (81-100); NEUTROPHILS % (AUTO) 88.8 % (40-74); Platelet Count 223 bil/L (150-400)
[2016-09-13] MEDS: Doxycycline 100 mg/100 mL D5W IV SCH ×4 (08:45→20:25)
[2016-09-13] MEDS: Sodium Chloride LOK Flush 10 mL Syringe IVFLUSH SCH ×2 (08:45→17:34)
--- NOTE | 2016-09-13 10:40 | NUR ---
Social Work-readiness for discharge: Data:EMR Reviewed. Pt is on day 2 of hospitalization for pneumonia per H&P. Per Md, pt may be ready to discharge tomorrow. Pt reside at home with her spouse and per RN notes has been up independent in her room. Pt to have stress test today at 1300. ID involved and anticipates pt to discharge on oral abx. Pt's to provide transport home at discharge. No anticipated discharge needs. SW will continue to follow. Assessment:Pt who is independent at baseline. Plan:Pt to discharge home when medically stable via POV. No anticipated discharge needs. SW will continue to follow. DALILA Ramirez
--- NOTE | 2016-09-13 13:09 | PROG NOTE ---
[address] [address] PROGRESS NOTE PATIENT: ELVIS HUYNH : 1960 MR#: [id number] ADMIT: 09/11/2016 JOB ID: [id number] DATE: 09/13/2016 INFECTIOUS DISEASE FOLLOW UP NOTE: REASON FOR FOLLOW UP: Congestive heart failure and underlying concern for pulmonary infection. INTERVAL HISTORY: The patient reports that last night she experienced worsening shortness of breath which was treated with more aggressive diuresis. This produced some disruption in sleep as she was up urinating a great deal but personnel reports that the shortness of breath that was problematic late yesterday has improved. She has had no fevers, chills, or sweats and denies any of the rigors she had previously described. She has tolerated her antibiotics well today. PHYSICAL EXAMINATION: Reveals a more comfortable woman in no acute distress, sitting up in a chair. Temperature, she has been afebrile now for 36 hours with a temperature of 37.1. Recall that during her first day and a half in the hospital, she had several spiking fevers of significance. Pulse 77, respiratory rate 24, blood pressure 141/83. She is saturating well on nasal oxygen. Oral cavity is benign. Lungs with crackles at the bases, right greater than left. Cardiac tones without S3. Abdomen negative. No skin rash. LABORATORIES: Include a white count 10,000 this morning which is improved from 12,000 on admission. Creatinine is 0.53. Procalcitonin was as high as 4.3, now down to 1.6. Urinalysis had 6-10 white cells, and the urine culture subsequently grew E coli which is a peterson susceptible organism. Urine antigens for Legionella and pneumococcus were negative, respiratory viral panel negative and blood cultures negative. IMAGING: No new imaging has been done since the CT angiogram September 10 which showed extensive ground-glass appearance in the left lung and a bit of infiltrate at the right base. IMPRESSION: It continues to seem that most of what is going on in terms of her shortness of breath is secondary to congestive heart failure as the CT and routine chest x-ray look more like congestive heart failure than a typical pneumonia, and she has improved with diuresis, but nonetheless left with the rigors and fevers that were quite well documented upon admission as well as the elevated procalcitonin. It would appear the what's going on here is some combination of congestive heart failure which may been triggered by a bacterial infection. As of this point, we have no microbiologic etiology for the bacterial process, however. RECOMMENDATIONS: 1. We continue with the doxy, ceftriaxone until the patient is more improved and we have another continued drop in the procalcitonin as well as continued period of having no fevers. 2. Once the patient has improved substantially with a lower procalcitonin and a couple days afebrile, she will probably be discharged on oral doxycycline to complete a 10 day course of therapy. 3. ID will continue to follow with you.
--- NOTE | 2016-09-13 13:12 | NUR ---
Off Floor Pt left the floor for STRESS test at 1300.
--- NOTE | 2016-09-13 16:32 | DRSVH ---
PROCEDURE: 1 DAY PHARMACOLOGICAL STRESS TEST Rest and pharmacological stress myocardial perfusion SPECT with gated imaging and ejection fraction RADIOPHARMACEUTICAL: 9.1 mCi Tc-99m tetrafosmin IV at rest and 31.8 mCi Tc-99m tetrafosmin IV at pe ak effect of pharmacological stress. A [id number] was performed. INDICATIONS: Chest pain. TECHNIQUE: Radiopharmaceutical was injected at peak stress test, and also at rest. SPECT images wer e obtained. SPECT myocardial perfusion images were displayed in short axis, horizontal long axis, an d vertical long axis views. Gated images were reviewed using Marcandi software. COMPARISON: None. CARDIAC STRESS: A pharmacologic stress test was performed under the supervision of an attending staff, using an infus ion of lexiscan. Hemodynamic data: There is normal blood pressure and heart rate response to pharmacologic stress. Symptoms: The patient denied anginal chest pain. Aminophylline: 100mg EKG: Baseline ECG shows somewhat diffuse ST/T wave changes without significant change during stress. FINDINGS: Raw data: There is good myocardial uptake of radiotracer. Left ventricle function: Gated images demonstrate mild to moderate hypokinesis of the apical lateral wall segments. Left ventricle resting end diastolic volume is 137 mL. Left ventricle stress eject ion fraction is 49% ; normal range is above 45%. Myocardial perfusion: There is a moderate sized area of moderate to severely decreased uptake affect ing the lateral wall with minor improvement in the apical anterolateral segment on the rest images. There is also a small area of injury/infarct affecting the apical anteroseptal wall that appears fixe d. No other imaging defects are appreciated. IMPRESSION: 1. Appropriate hemodynamic response to pharmacologic stress. 2. No chest pain or diagnostic ECG changes with stress. 3. Scintigraphic evidence for an area of infarct affecting the lateral wall with a small area of poss ible periinfarct ischemia at the apical anterolateral segment. There is also a small area of infarct affecting the apical anteroseptal segment that shows no significant periinfarct ischemia. 4. Normal left ventricular size with hypokinesis of the apical lateral wall and an estimated EF of 49 % Dictated by: Kae Peters M.D. on 09/13/2016 at 16:29 Approved by: Kae Peters M.D. on 09/13/2016 at 16:29
--- NOTE | 2016-09-13 19:33 | PCM.PNMED ---
Subjective Date of Service Sep 13, 2016 Subjective Edna reports that she continues to have a cough though she is not producing any sputum. She has a Lexiscan planned for 1pm today. Exam Vital Signs Vital Sign - Last Date Time Temp Pulse Resp B/P Pulse Ox O2 Delivery O2 Flow Rate FiO2 09/13/16 18:13 37.2 87 24 151/85 94 Nasal Cannula 4.00 09/10/16 20:58 50 Intake and Output 09/12/16 09/12/16 09/13/16 Cumulative From/Thru 15:00 23:00 07:00 09/10/16 20:14 - 09/13/16 06:46 Intake Total 1975 ml 1379 ml 7724 ml Output Total 1300 ml 2750 ml 7870 ml Balance 675 ml -1371 ml -146 ml Intake Oral 1250 ml 1154 ml 4774 ml IV Total 725 ml 225 ml 2950 ml Output Urine Total 1300 ml 2750 ml 7870 ml # Voids 2 # Bowel Movements 1 2 4 Exam General: Well appearing female resting comfortably in her bed upon my entering the room. No acute distress. Supplemental oxygen via nasal cannula at 2.5L/h. No gasping or tripoding. No accessory muscle use HEENT: Moist mucus membranes. Sclera anicteric Cardiac: RRR, no murmur, rub, or gallop appreciated Respiratory: Good inspiratory effort. No wheezes or rhonchi. Subtle left sided crackles present. Extremities: No clubbing, cyanosis, or edema bilaterally Neuro: Awake, alert and oriented. Moves all 4 extremities with ease. Ambulating independently in the room. IVs and Medications Medications Reviewed: Medications were reviewed in detail Lab and Diagnostics Result Diagram: 09/13/16 0550 09/12/16 0632 Microbiology Respiratory PCR negative Strep pneumo urine Ag negative X-Rays, CTs and MRIs PROCEDURE: X-RAY CHEST ONE VIEW, PORTABLE ([id number]) FINDINGS: Surgical changes and devices: None. Lungs and pleura: No pleural effusions or pneumothorax. Left midlung and basilar consolidation. Mediastinum: Mediastinal contours appear normal. Heart size is normal. Bones and chest wall: No suspicious bony lesions. Overlying soft tissues appear unremarkable. IMPRESSION: Left midlung and basilar pneumonia Dictated by: Jack Busby M.D. on 09/10/2016 at 20:47 Approved by: Jack Busby M.D. on 09/10/2016 at 20:47 Cardiac Echo Impressions Echo with EF of 40-45%, unchanged from prior Echo. Assessment & Plan Edna is a 56yo female with history of CAD s/p multiple stent placements that presented to [facility] with acute onset dyspnea at rest without inciting factors. She was admitted for evaluation and treatment of acute respiratory failure. Today, she has admitted to significant chills and night sweats. She was febrile at 01: 08 on 09/12/16 at 38.3 while on ceftriaxone and azithromycin. Additionally, she was found to have a prolonged QT. Hospital day #3 1. Community- acquired pneumonia, acute - Symptoms and imaging indicative of left sided pneumonia - Ceftriaxone 2g q24h + doxycycline. Azithromycin discontinued on 09/12/15 given QT prolongation - Infectious disease expertise appreciated 2. Acute hypoxemic respiratory failure, present on admission. Improving - Likely secondary to pneumonia. - Weaning supplemental oxygen as tolerated 3. Elevated troponin, declining - Likely due to demand - On admit: 0.010; repeated values elevated at 0.219, 0.237, 0.093 - Cardiology consulted and echocardiogram without new features - Completed 48hours of heparin therapy, thus has been discontinued - Metoprolol succinate at home dose of 100mg qHS and home statin dose - Lexiscan today 4. Sepsis due to pneumonia, present on admission. Resolved - On admit: HR 133, WBC 12.1, RR42, no longer meets sepsis criteria - Treating her pneumonia Dispo: Likely to remain additional 1-2 days pending improvement of her pneumonia. GI Prophylaxis: H2 marlene VTE Prophylaxis: Other (On a heparin drip currently) VTE Mechanical Devices: Venous Foot Pump Resuscitation Status: CPR: Attempt Resuscitation Attending Statement The patient was seen and examined together with Dr. Nesbitt on 09/13/2016 and I agree with the history, exam and plan as outlined in the note above. Teresita Nesbitt DO Sep 13, 2016 19:08 German Stein MD Sep 14, 2016 10:34
[2016-09-13] MEDS: cefTRIAXone Inj 2,000 MG in IV Premix 1 EACH IV SCH (20:25)
[2016-09-13] MEDS: MeTOProlol XL 50 mg ER24 Tablet PO SCH (20:26)
[2016-09-14] MEDS: Sodium Chloride LOK Flush 10 mL Syringe IVFLUSH SCH ×2 (00:30→07:46)
[2016-09-14 00:34] VITALS: BP 141/80; PULSE 72; RESP 16; O2SAT 97
--- NOTE | 2016-09-14 04:37 | NUR ---
Respiratory Pt denies dyspnea at rest or on exertion; SpO2 95% on RA. No oxygen needed throughout shift, pt resting comfortably. VSS, tele SR 70s. Pt denies pain. States "I feel 100% better now that they've got these antibiotics on board. I'm ready to go home."
[2016-09-14 05:37] VITALS: BP 135/82; PULSE 68; RESP 16; O2SAT 98
[2016-09-14 06:45] LABS: BASOPHILS % (AUTO) 0.6 % (0-3); EOSINOPHILS % (AUTO) 5.5 % (0-5); MONOCYTES % (AUTO) 7.3 % (4-12); Mean Corpuscular Hemoglobin 30.6 pg (27.0-35.0); Mean Corpuscular Volume 92.4 fL (81-100); NEUTROPHILS % (AUTO) 71.7 % (40-74); Platelet Count 223 bil/L (150-400)
[2016-09-14] MEDS: Doxycycline 100 mg/100 mL D5W IV SCH ×2 (07:45)
[2016-09-14 08:00] VITALS: PULSE 78
[2016-09-14] MEDS ORDERED: Heparin 5,000 Unit/mL Inj SUBQ SCH (08:30)
--- NOTE | 2016-09-14 10:40 | PCM.PNMED ---
Subjective Date of Service Sep 14, 2016 Subjective Edna reports that she has had a great improvement in her energy level since yesterday afternoon though she is not yet back to her baseline. Denies any dyspnea or cough. She is looking forward to going home. Exam Vital Signs Vital Sign - Last Date Time Temp Pulse Resp B/P Pulse Ox O2 Delivery O2 Flow Rate FiO2 09/14/16 05:37 36.6 68 16 135/82 98 Room Air 09/13/16 18:13 4.00 09/10/16 20:58 50 Intake and Output 09/13/16 09/13/16 09/14/16 Cumulative From/Thru 15:00 23:00 07:00 09/10/16 20:14 - 09/14/16 06:24 Intake Total 120 ml 450 ml 400 ml 8694 ml Output Total 1050 ml 1000 ml 9920 ml Balance 120 ml -600 ml -600 ml -1226 ml Intake Oral 300 ml 400 ml 5474 ml IV Total 110 ml 150 ml 3210 ml Tube Irrigant 10 ml 10 ml Output Urine Total 1050 ml 1000 ml 9920 ml # Voids 2 # Bowel Movements 0 2 6 Exam General: Well appearing female resting comfortably, sitting up in bed upon my entering the room. No acute distress. No gasping or tripoding. No accessory muscle use. Saturating well on room air. Conversational HEENT: Moist mucus membranes. Sclera anicteric Cardiac: RRR, no murmur, rub, or gallop appreciated Respiratory: Good inspiratory effort. No crackles or rhonchi. Subtle left basilar wheezing present. Extremities: No clubbing, cyanosis, or edema bilaterally Neuro: Awake, alert and oriented. Moves all 4 extremities with ease. Ambulating independently in the room. IVs and Medications Medications Reviewed: Medications were reviewed in detail Lab and Diagnostics Result Diagram: 09/14/16 0550 09/12/16 0632 Microbiology Respiratory PCR negative Strep pneumo urine Ag negative X-Rays, CTs and MRIs PROCEDURE: X-RAY CHEST ONE VIEW, PORTABLE ([id number]) FINDINGS: Surgical changes and devices: None. Lungs and pleura: No pleural effusions or pneumothorax. Left midlung and basilar consolidation. Mediastinum: Mediastinal contours appear normal. Heart size is normal. Bones and chest wall: No suspicious bony lesions. Overlying soft tissues appear unremarkable. IMPRESSION: Left midlung and basilar pneumonia Dictated by: Jack Busby M.D. on 09/10/2016 at 20:47 Approved by: Jack Busby M.D. on 09/10/2016 at 20:47 Cardiac Echo Impressions Echo with EF of 40-45%, unchanged from prior Echo. Assessment & Plan Edna is a 56yo female with history of CAD s/p multiple stent placements that presented to [facility] with acute onset dyspnea at rest without inciting factors. She was admitted for evaluation and treatment of acute respiratory failure. Today, she has admitted to significant chills and night sweats. She was febrile at 01: 08 on 09/12/16 at 38.3 while on ceftriaxone and azithromycin. Additionally, she was found to have a prolonged QT. Hospital day #4 1. Community- acquired pneumonia, acute - Symptoms and imaging indicative of left sided pneumonia - Ceftriaxone 2g q24h for 3 days has been completed - Continue with doxycycline BID for an additional 7 days to complete a course of 10 days of antibiotic therapy - Azithromycin discontinued on 09/12/15 given QT prolongation - Infectious disease expertise appreciated 2. Acute hypoxemic respiratory failure, present on admission. Resolved - Likely secondary to pneumonia. - Weaning supplemental oxygen as tolerated 3. Elevated troponin, declining - Likely due to demand - On admit: 0.010; repeated values elevated at 0.219, 0.237, 0.093 - Cardiology consulted and echocardiogram without new features - Lexiscan without concerning results - Completed 48hours of heparin therapy, thus has been discontinued 4. Coronary artery disease history, multivessel, stable - Metoprolol succinate at home dose of 100mg qHS and home statin dose - Continue home dosing of lisinopril, aspirin, and plavix 5. Sepsis due to pneumonia, present on admission. Resolved - On admit: HR 133, WBC 12.1, RR42, no longer meets sepsis criteria - Treating her pneumonia Dispo: Anticipate discharge tomorrow. VTE Prophylaxis: Sub-Q Heparin (Unfractionated) Resuscitation Status: CPR: Attempt Resuscitation Teresita Nesbitt DO Sep 14, 2016 10:40
[2016-09-14 10:59] VITALS: PULSE 70; RESP 16; O2SAT 98
[2016-09-14 11:08] VITALS: BP 147/80; PULSE 59; RESP 16; O2SAT 96
[2016-09-14] MEDS ORDERED: DOXY100T2 PO (11:58)
--- NOTE | 2016-09-14 12:05 | PCM.DIMED ---
Teresita Nesbitt DO 09/14/16 1205: Discharge Instructions Date of Service Sep 14, 2016 Dates of Hospitalization Sep 11, 2016 at 00:00 Discharge Diagnosis Discharge Diagnosis Community- acquired pneumonia, left sided, acute and improved, on antibiotic therapy Acute hypoxemic respiratory failure, present on admission. Resolved Sepsis due to pneumonia, present on admission. Resolved Elevated troponin, decreased Coronary artery disease history, multivessel, stable Medication Instructions Continue your normal home medications with the exception of citalopram given that you have QT prolongation which may be worsened by citalopram and increases the risk of a fatal arrhythmia. Please talk with your primary care physician about alternatives to citalopram. START 1 tablet of doxycycline by mouth twice daily for 7 days. Make sure that you finish the entire course of antibiotic. - The prescription for this has been sent to [facility] pharmacy for you. Diet Heart Healthy Activity Other (Balance rest and activity. ) Call your provider Fever or Chills, Shortness of breath, Bleeding, Chest pain, Vomitting, Excessive diarrhea, Weakness (unilateral) Patient Instructions Please call your primary care provider to schedule a follow up appointment in which you should be seen in 7-10 days. Follow-up Provider: Nadia Metzger PA-C Follow-up with PCP in: 1 week Provider: Lou Anna MD Follow-up in: Other (Keep the appointment you have scheduled next month) German Stein MD 09/15/16 1352: Teresita Nesbitt DO Sep 14, 2016 12:05 German Stein MD Sep 15, 2016 13:52
--- NOTE | 2016-09-14 12:09 | PROG NOTE ---
[address] [address] PROGRESS NOTE PATIENT: ELVIS HUYNH : 1960 MR#: [id number] ADMIT: 09/11/2016 JOB ID: [id number] DATE: 09/14/2016 INFECTIOUS DISEASE FOLLOWUP NOTE: REASON FOR FOLLOWUP: Probable pulmonary bacterial process. INTERVAL HISTORY: The patient reports that overnight her breathing has become progressively better. She no longer has significant dyspnea or any significant shortness of breath. She denies fevers, chills, or productive cough and states she is getting close to her baseline and would like to be discharged. PHYSICAL EXAMINATION: Reveals an afebrile woman. She has been afebrile since the when she spiked to 38.8. Today, she is 36.7, pulse 60, respiratory rate 16, blood pressure 147/80, saturating well on room air. She continues to have a jennifer complexion, which has characterized her skin appearance since admission. Eyes without conjunctivitis. Oral cavity negative. Lungs: A few crackles at the bases but improved. Abdomen without change. LABORATORIES: Include white count consistently normal now at 6200. Note that her white count did come in at 12,000 but within the first day dropped to normal and has stayed there. She has now developed mild eosinophilia of 5%. Creatinine is 0.63. Procalcitonin is basically going down by half every day. It started off at 4.3, dropped to 3.5, 1.6 and today, 0.6. So, we have evidence of resolving bacterial infection. Serologies and cultures though remain entirely negative except for urine, which grew some E. coli on admission which was asymptomatic and likely represented asymptomatic bacteria. MRSA screen is negative. Blood cultures negative. Respiratory viral PCR negative. IMAGING: No new imaging is available. IMPRESSION: This patient was primarily admitted with what appears to be some congestive heart failure and fluid overload related to her underlying cardiac disease and demand ischemia. This may have been precipitated by what seems like a left-sided pneumonia, though it is difficult to tell on the CT scan how much is pneumonia and how much might be congestive heart failure or fluid overload. In any event, the patient is responding dramatically to her antibiotic therapy with steady improvement in her overall situation, as well as a 50% drop per day in her procalcitonin, which has now reached 0.61. RECOMMENDATIONS: 1. Following today's dose of ceftriaxone, I think it is reasonable to discharge the patient on doxycycline for approximately 3-5 days additional to complete therapy for what was probably a left-sided pneumonia precipitating some demand ischemia and cardiac decompensation. 2. This case discussed in person with the gaviria team and Dr. Stein. 3. Infectious Disease will go ahead and sign off on this case. Thank you for the consult.
--- NOTE | 2016-09-14 13:48 | PCM.PNCARD ---
Subjective Date of service Sep 14, 2016 Chief Complaint # Pneumonia # CAD # ICM (EF 40%) # CHF # s/p Multiple PCI's (Xience REESE's) # s/p (2) NSTEMI's (10/22/2011 and 04/24/2012) # HLD # HTN # Prior history of tobacco abuse History of Present Illness Ms. Solange Branch is a pleasant 56-year-old female that relates she was watching the [employer] playoff game on Monday night when she apparently developed a sudden onset of SOB at rest. She presented to the [facility] ER for evaluation. Her CXR was completed and was thought that she was having flash pulmonary edema. She eventually was sent for CT scan to rule PE which was negative but lung aguilar showed that findings were more consistent with pneumonia than CHF. When she first arrived in the emergency room she was only saturating around 60% . She was started on BiPAP and her O2 sats improved to >90%. Her EKG showed some subtle ST depression in multiple leads but was not particularly impressive. While in the emergency department she was initially given IV nitro and IV Lasix because it was thought her presentation was consistent with acute CHF. The patient's BP dropped, so her IV nitro was discontinued. She has been started on IV abx. Microbiology lab work showed no evidence for influenza. She denied any chest pain during this presentation. On further interrogation by the hospitalist, she does admit to chills and cough yesterday. Patient works on a farm and up until yesterday she had no complaints of SOB or chest pain on exertion. that is chronically followed in the [facility] Cardiology Department by Dr. Latwon. The patient was most recently seen by Dr. Lawton on 2013. The patient's cardiac history consists of: Severe three-vessel CAD, ICM, S/P (2) NSTEMI's (10/22/2011 and 04/24/2012), S/P Xience REESE to the OM (2011), s/p (2) Xience REESE's to the RCA and (3) REESE's Xience stents to the LAD ( 04/24/2012), CHF, HTN, HLP, history of tobacco abuse Lexiscan stress test 09/13/2016 1. Appropriate hemodynamic response to pharmacologic stress. 2. No chest pain or diagnostic ECG changes with stress. 3. Scintigraphic evidence for an area of infarct affecting the lateral wall with a small area of possible periinfarct ischemia at the apical anterolateral segment. There is also a small area of infarct affecting the apical anteroseptal segment that shows no significant nestor-infarct ischemia. 4. Normal left ventricular size with hypokinesis of the apical lateral wall and an estimated EF of 49% 2-D echocardiogram: 09/11/2016 The left ventricle is mildly dilated. Left ventricular systolic function is moderately reduced. The ejection fraction is estimated to be 40-45%. There is akinesis along the mid/distal inferolateral, and hypokinesis along the anterior , part of apical, and mid and distal anteroseptal wall. Comparing to the prior echo report, LVEF and LV wall motion are similar. Assessment of diastolic parameters indicates a relaxation abnormality of the left ventricle, consistent with normal filling pressures. The right ventricle is normal in size, thickness and function. Pulmonary artery pressures cannot be estimated because of the lack of a measurable TR jet velocity. The left atrium is mildly dilated. Right atrial size is normal. There is no significant valvular heart disease. The ascending aorta is mildly enlarged. CTA Chest: 09/10/2016 1. Extensive ground glass appearance in the left lung most consistent with pneumonia. Right lung is generally clear with a small amount of disease at the right base as well as subsegmental atelectasis at the right base 2. Prominent right hilar and subcarinal lymph nodes of unknown etiology. Subjective: BP: 135 to 147/80 mmHg, HR: 59-72 BPM Weight 82 kg (stable) Today, the patient relates that she is feeling very well. She denies any type of anginal symptom, no shortness of breath, no dyspnea, no PND/orthopnea, no lower extremity swelling, no dizziness, no lightheadedness, no presyncope or mino syncopal episodes, no palpitations. Current cardiac medications: 1. Metoprolol 100 mg by mouth daily at bedtime 2. Plavix 75 mg by mouth daily 3. Lisinopril 20 mg 1 by mouth daily 4. Aspirin 81 mg one by mouth daily 5. Lasix 40 mg one by mouth daily 6. Atorvastatin 80 mg one by mouth daily at bedtime 7. Fenofibrate 145 mg 1 by mouth daily 8. Heparin subcutaneous every 8 H Labs: 09/14/2015 1. CBC: W: 6.2, H/H: 13.6/41.1 2. CMP: N/A plus: 141, K+: 3.5, BUN/creatinine: 10 / 0.63 3. Troponin: (09/12/2015) 0.040 11-point ROS: 11-point Review of Systems negative (All other review of systems are reviewed and are negative except for as in history of present illness.) Exam Vital Signs Vital Sign - Last Date Time Temp Pulse Resp B/P Pulse Ox O2 Delivery O2 Flow Rate FiO2 09/14/16 11:08 36.7 59 16 147/80 96 Room Air 09/13/16 18:13 4.00 09/10/16 20:58 50 Intake and Output 09/13/16 09/13/16 09/14/16 Cumulative From/Thru 15:00 23:00 07:00 09/10/16 20:14 - 09/14/16 06:24 Intake Total 120 ml 450 ml 400 ml 8694 ml Output Total 1050 ml 1000 ml 9920 ml Balance 120 ml -600 ml -600 ml -1226 ml Intake Oral 300 ml 400 ml 5474 ml IV Total 110 ml 150 ml 3210 ml Tube Irrigant 10 ml 10 ml Output Urine Total 1050 ml 1000 ml 9920 ml # Voids 2 # Bowel Movements 0 2 6 Additional Information: Constitutional: Middle-aged woman AAO in NAD Head: NC/AT Eyes: Scelra Non Icteric Neck: Supple, Carotids 2+/4 without bruits, No JVD, No HJR Chest: Diffuse crackles on the left side and some at the right base Heart: Tachycardic S1-S2 without murmur Abdomen: Soft, rotund, without masses, LKS [employer], NT, +NABS Extremities: No pedal edema Skin: No masses, rashes or lesions noted Psych: Mood and affect are appropriate Lab and Diagnostics Result Diagram: 09/14/16 0550 09/12/16 0632 Assessment & Plan Assessment (#) ICM (EF 40%) Patient is currently doing well without any type of anginal symptoms. Her 2-D echocardiogram is stable without any significant changes compared to the prior 2 -D echo study in 2011. She has chronic LV wall motion abnormalities and no significant valvular heart disease. Her sister scan stress test did not show any reversible perfusion defect. She is much more comfortable today than when she was admitted to the hospital. Her 12-lead EKG does not indicate any significant ischemia. Although, her troponins have increased since the initiation of her acute respiratory event, I suspect this is more of a demand ischemic event more so than acute coronary syndrome. Based on her coronary angiogram reports, she has diffuse three- vessel coronary artery disease in her epicardial coronaries which could have contributed to her elevated troponins during her acute respiratory event. Recommendation: 1. Continue Plavix 75 mg per day 2. Continue lisinopril 20 mg per day 3. Continue aspirin 81 mg per day 4. Continue Lasix 40 mg by mouth daily 5. Continue metoprolol 100 mg by mouth daily at bedtime 6. Continue atorvastatin 80 mg per day 7. Continue fenofibrate 145 mg per day 8. Cardiology will sign off and see only of called 9. She has an appointment to see Dr. Lawton in early October. (#) Pneumonia The patient's bilateral pneumonia is likely the culprit for causing her acute respiratory event. The Hospitalist R treating her with IV abx and she is improving symptomatically. Recommendation: 1. Treatment plan per primary care team (#) CAD (coronary artery disease) Patient's coronary disease is currently stable. There are no significant changes in her 2-D echocardiogram. The Lexiscan stress test did not show any significant reversible myocardial perfusion defect. Recommendation: 1. Continue current medical management (#) Presence of stent in coronary artery The patient has a history of 2 previous NSTEMI's in October and April 2012. The patient has 3 Xience REESE's to LAD, 2 Xience REESE's to RCA and 1 REESE to OM. Recommendation: 1. As above continue current medical management (#) Hyperlipidemia Recommendation: 1. Continue with atorvastatin 40-80 mg po qhs. (#) Hypertension: Currently well-controlled on medical management Recommendation: 1. Continue current medical management as outlined above Problems: (1) Chronic left ventricular systolic dysfunction Status: Chronic ICD Code: I51.9 (2) Pneumonia Qualifiers: Pneumonia type: due to unspecified organism Laterality: bilateral Status: Acute ICD Code: J18.9 (3) CAD (coronary artery disease) Qualifiers: Coronary Disease-Associated Artery/Lesion type: teller artery [place] vs. transplanted heart: teller heart Associated angina: without angina Qualified Code: I25.10 - Atherosclerotic heart disease of teller coronary artery without angina pectoris Status: Chronic ICD Code: I25.10 (4) Multi-vessel coronary artery stenosis Status: Chronic ICD Code: I25.10 (5) Presence of stent in coronary artery Status: Chronic ICD Code: Z95.5 (6) Hyperlipidemia Qualifiers: Hyperlipidemia type: Mixed hyperlipidemia Qualified Code: E78.2 - Mixed hyperlipidemia Status: Chronic ICD Code: E78.5 (7) Hypertension Qualifiers: Hypertension type: essential hypertension Status: Chronic ICD Code: I10 Pain Evaluation: Adequate Pain Control VTE Prophylaxis: Sub-Q Heparin (Unfractionated) Resuscitation Status: CPR: Attempt Resuscitation Dony Gonzalez PA-C Sep 14, 2016 13:48
[2016-09-14 15:16] VITALS: BP 131/79; PULSE 79; RESP 16; O2SAT 96
--- NOTE | 2016-09-14 15:49 | PROG NOTE ---
[address] [address] PROGRESS NOTE PATIENT: ELVIS HUYNH : 1960 MR#: [id number] ADMIT: 09/11/2016 JOB ID: [id number] DATE: 09/14/2016 I saw and examined the patient. Please see Dony Gonzalez's notes for details. IMPRESSION: 1. Elevated troponin due to demand ischemia from pneumonia. 2. Left ventricular ejection fraction 49%. 3. Status post three-vessel stenting in 2011, at [facility] . 4. Hypertension. 5. Hyperlipidemia. 6. Prior smoker. PLAN: Her troponin T peaked at 0.237 on admission and has since come down. This picture is compatible with demand ischemia. It is confirmed by stress echocardiogram, which demonstrated no ischemia. She feels almost back to her normal self. I believe that she could be discharged home from a cardiac standpoint. She already has an appointment to see me in the clinic in October of this year. CL
--- NOTE | 2016-09-14 16:14 | NUR ---
Social Work-discharge: Data:EMR Reviewed. Pt is on day 3 of hospitalization for pneumonia per H&P. Pt is medically stable for discharge today. Pt has been up independent in his room. No discharge needs identified. All updated and agreeable to plan. Assessment:Pt who is independent at baseline. Plan:Pt to discharge home today via POV. No discharge needs identified. All updated and agreeable to plan. DALILA Ramirez
--- NOTE | 2016-09-14 16:43 | PCM.DC.MED ---
Discharge Summary Date of Service Sep 14, 2016 Dates of Hospitalization Date of Hospital Admission Sep 11, 2016 at 00:00 Date of Discharge: Sep 14, 2016 Providers: Admitting Physician: Tawana Cantrell MD Primary Care Physician: Nadia Metzger PA-C Attending Physician: Tawana Cantrell MD Diagnosis at Time of Discharge Diagnosis at Time of Discharge Community- acquired pneumonia, left sided, acute and improved, on antibiotic therapy Acute hypoxemic respiratory failure, present on admission. Resolved Sepsis due to pneumonia, present on admission. Resolved Elevated troponin, decreased Coronary artery disease history, multivessel, stable Consultations Cardiology Procedures XRay, CTs & MRIs PROCEDURE: X-RAY CHEST ONE VIEW, PORTABLE ([id number]) FINDINGS: Surgical changes and devices: None. Lungs and pleura: No pleural effusions or pneumothorax. Left midlung and basilar consolidation. Mediastinum: Mediastinal contours appear normal. Heart size is normal. Bones and chest wall: No suspicious bony lesions. Overlying soft tissues appear unremarkable. IMPRESSION: Left midlung and basilar pneumonia Dictated by: Jack Busby M.D. on 09/10/2016 at 20:47 Approved by: Jack Busby M.D. on 09/10/2016 at 20:47 Cardiac Echo Impression Echo with EF of 40-45%, unchanged from prior Echo. Other Diagnostics Lexiscan stress test 09/13/2016 1. Appropriate hemodynamic response to pharmacologic stress. 2. No chest pain or diagnostic ECG changes with stress. 3. Scintigraphic evidence for an area of infarct affecting the lateral wall with a small area of possible periinfarct ischemia at the apical anterolateral segment. There is also a small area of infarct affecting the apical anteroseptal segment that shows no significant nestor-infarct ischemia. 4. Normal left ventricular size with hypokinesis of the apical lateral wall and an estimated EF of 49% Echocardiogram: 09/11/2016 The left ventricle is mildly dilated. Left ventricular systolic function is moderately reduced. The ejection fraction is estimated to be 40-45%. There is akinesis along the mid/distal inferolateral, and hypokinesis along the anterior , part of apical, and mid and distal anteroseptal wall. Comparing to the prior echo report, LVEF and LV wall motion are similar. Assessment of diastolic parameters indicates a relaxation abnormality of the left ventricle, consistent with normal filling pressures. The right ventricle is normal in size, thickness and function. Pulmonary artery pressures cannot be estimated because of the lack of a measurable TR jet velocity. The left atrium is mildly dilated. Right atrial size is normal. There is no significant valvular heart disease. The ascending aorta is mildly enlarged. CTA Chest: 09/10/2016 1. Extensive ground glass appearance in the left lung most consistent with pneumonia. Right lung is generally clear with a small amount of disease at the right base as well as subsegmental atelectasis at the right base 2. Prominent right hilar and subcarinal lymph nodes of unknown etiology. Brief History Per H&P by Dr Cantrell: This is a 56-year-old female who has a history of [place] 2 and stents 6. This occurred at [facility] about 5 years ago. Her kitchen worker here at [facility] is Dr. Lawton. She was in her usual state of health and watching [employer] game and suddenly became acutely short of breath. She also was having shaking chills. Was also observed by her . She denies any chest pain. EMS was called and she was found to have a room air sat of 60%. She was placed on BiPAP with good oxygen saturation she does admit to a mild cough today. His any recent sick contacts. She does note that she has had a history of acute congestive heart failure and did not present similarly to this. Her evaluation in the emergency room included a white count of 12.1 troponin of 0.010. There is significant for small leukocyte esterase negative nitrite 3-10 rbc's 6-10 WBCs moderate epithelial cells and many bacteria. Initial ABG was 7.348, PCO2 was 42, PO2 74.6 and bicarbonate 22.5. Chest x-ray revealed left mid lung and basilar pneumonic infiltrate. EKG revealed sinus tachycardia at a rate of [address] depressions noted diffusely. However I have not located the hard copy of his EKG. Hospital Course The following were addressed during this hospitalization: 1. Community- acquired pneumonia, acute, improved - Chills, fatigue, and febrile at 38.8 on 09/12/16 and imaging indicative of left sided pneumonia - Ceftriaxone 2g q24h for 3 days completed - Outpatient plan to continued with doxycycline BID for an additional 7 days to complete a course of 10 days of antibiotic therapy - Azithromycin discontinued on 1/9/16 given QT prolongation - Infectious disease consulted and guided duration of therapy 2. Acute hypoxemic respiratory failure, present on admission. Resolved - Likely secondary to pneumonia. - Successfully weaned off of supplemental oxygen 3. Elevated troponin, improved - Due to demand - On admit: 0.010; repeated values elevated at 0.219, 0.237, 0.093 - Cardiology consulted and echocardiogram without new features - Lexiscan without concerning results - Discontinued heparin therapy in the morning of 09/13/16 after 48hours of treatment 4. Coronary artery disease history, multivessel, stable - Metoprolol succinate at home dose of 100mg qHS and home statin dose - Continue home dosing of lisinopril, aspirin, and plavix 5. Sepsis due to pneumonia, present on admission. Resolved - On admit: HR 133, WBC 12.1, RR42 Exam Vital Signs (Last) Date Time Temp Pulse Resp B/P Pulse Ox O2 Delivery O2 Flow Rate FiO2 09/14/16 15:16 36.7 79 16 131/79 96 Room Air 09/13/16 18:13 4.00 09/10/16 20:58 50 Test 09/10/16 20:15 09/10/16 21:15 09/10/16 21:20 09/10/16 23:06 Pro-B-Type Natriuretic Peptide 562.1pg/mL (0-287) Hold [place] Top Tube Received (Received) Urine Color Dark yellow (YELLOW) Urine Appearance Cloudy (CLEAR,HAZY) Urine pH 6.0 (5.0-8.0) Urine Specific Maurice 1.020 (1.003-1.035) Urine Protein Tracemg/dL (NEG,TRACE) Urine Glucose (UA) Negativemg/dL (NEGATIVE) Urine Ketones Negativemg/dL (NEGATIVE) Urine Occult Blood Small (NEGATIVE) Urine Nitrite Negative (NEGATIVE) Urine Bilirubin Negative (NEGATIVE) Urine Urobilinogen 1.0mg/dL (NORMAL) Urine Leukocyte Esterase Small (NEGATIVE) Urine RBC 3-10/hpf (0-2) Urine WBC 6-10/hpf (0-5) Urine Epithelial Cells Moderate/hpf (NONE-MOD) Urine Crystals None seen (NONE SEEN) Urine Bacteria Many/hpf (NONE-FEW) Urine Hyaline Casts None/lpf (NONE) Urine Granular Casts None seen (NONE SEEN) Urine Waxy Casts None seen (NONE SEEN) Urine Red Blood Cell Casts None seen (NONE SEEN) Urine White Blood Cell Casts None seen (NONE SEEN) Urine Mucus None seen (None Seen) Urine Trichomonas None seen (NONE SEEN) Urine Yeast None (NONE SEEN) Urine Culture Reflexed Indicated Hold Urine Received (Received) Urine Legionella pneumophilia Ag Negative (Negative) Lactic Acid Level 1.9mmol/L (0.4-2.0) Test 09/11/16 01:00 09/11/16 06:15 09/11/16 20:35 09/12/16 06:32 Hemoglobin A1c 5.9% (4.8-5.6) Total Bilirubin 0.2mg/dL (0.0-1.2) Aspartate Amino Transf (AST/SGOT) 33U/L (0-50) Alanine Aminotransferase (ALT/SGPT) 37U/L (0-32) Alkaline Phosphatase 43U/L (25-150) Total Protein 6.1g/dL (6.4-8.4) Albumin 3.5g/dL (3.4-5.0) Triglycerides Level 106mg/dL (0-149) Cholesterol Level 112mg/dL (100-199) LDL Cholesterol, Calculated 48.800mg/dL (0-99) VLDL Cholesterol 21.200mg/dL HDL Cholesterol 42mg/dL (>39) Cholesterol/HDL Ratio 2.67 (0.0-4.4) Hold [place] Top Tube Received (Received) Sodium Level 141mEq/L (134-144) Potassium Level 3.5mEq/L (3.5-5.2) Chloride Level 102mEq/L (97-108) Carbon Dioxide Level 26mmol/L (18-29) Blood Urea Nitrogen 10mg/dL (6-24) Creatinine 0.63mg/dL (0.57-1.00) Estimat Glomerular Filtration Rate 139mL/min (>59) Glucose Level 97mg/dL (60-99) Calcium Level 8.3mg/dL (8.5-10.1) Phosphorus Level 2.1mg/dL (2.5-4.9) Magnesium Level 2.0mg/dL (1.6-2.6) Troponin T 0.040ug/L (0.0-0.011) Test 09/13/16 05:50 09/14/16 05:50 Activated Partial Thromboplast Time 39.1sec (22.8-33.0) White Blood Count 6.2th/mm3 (3.8-10.1) Red Blood Count 4.45mil/mm3 (3.90-5.20) Hemoglobin 13.6g/dL (12.0-15.6) Hematocrit 41.1% (35.0-46.0) Mean Corpuscular Volume 92.4fL (81-100) Mean Corpuscular Hemoglobin 30.6pg (27.0-35.0) Mean Corpuscular Hemoglobin Concent 33.1% (32.0-37.0) Red Cell Distribution Width 11.9% (12.3-15.4) Platelet Count 223bil/L (150-400) Neutrophils (%) (Auto) 71.7% (40-74) Lymphocytes (%) (Auto) 14.7% (14-46) Monocytes (%) (Auto) 7.3% (4-12) Eosinophils (%) (Auto) 5.5% (0-5) Basophils (%) (Auto) 0.6% (0-3) Procalcitonin 0.61ng/mL (See Comment) Microbiology Results Respiratory PCR negative Strep pneumo urine Ag negative Discharge Medications Discharge Medications Aspirin (Aspirin) 81 Mg Tablet 81 MG PO MORNING (Reported) Atorvastatin Calcium (Atorvastatin Calcium) 80 Mg Tablet 80 MG PO HS (Reported) Clopidogrel (Clopidogrel) 75 Mg Tablet 75 MG PO HS (Reported) Doxycycline Hyclate (Doxycycline Hyclate) 100 Mg Tablet 100 MG PO BID Prescribed by: BRANDEN NESBITT DO Fenofibrate (Fenofibrate) 160 Mg Tablet 160 MG PO HS (Reported) Furosemide (Lasix) 40 Mg Tablet 40 MG PO DAILY (Reported) Lisinopril (Lisinopril) 20 Mg Tablet 20 MG PO MORNING (Reported) Metoprolol Succinate ER (Metoprolol Succinate ER) 100 Mg Tab.er.24h 50 MG PO MORNING (Reported) Metoprolol Succinate ER (Metoprolol Succinate ER) 100 Mg Tab.er.24h 100 MG PO HS (Reported) Potassium Chloride ER (Potassium Chloride ER) 10 Meq Tablet 20 MEQ PO DAILY ( Reported) Additional med instructions Continue your normal home medications with the exception of citalopram given that you have QT prolongation which may be worsened by citalopram and increases the risk of a fatal arrhythmia. Please talk with your primary care physician about alternatives to citalopram. START 1 tablet of doxycycline by mouth twice daily for 7 days. Make sure that you finish the entire course of antibiotic. - The prescription for this has been sent to [facility] pharmacy for you. Followup Plan Disposition: Home with her Discharge Diet: Heart Healthy Discharge Activity: Other (Balance rest and activity. ) Patient Instructions Please call your primary care provider to schedule a follow up appointment in which you should be seen in 7-10 days. Follow-up Provider: Nadia Metzger PA-C Follow-up with PCP in: 1 week Provider: Lou Anna MD Follow-up in: Other (Keep the appointment you have scheduled in October) Time spent 32 minutes Attending Statement The patient was seen and examined together with Dr. Nesbitt on 09/14/2016 and I agree with the history, exam and plan as outlined in the note above. copies to: Nadia Metzger PA-C, Rachel M DO Sep 14, 2016 16:35 German Stein MD Sep 15, 2016 13:53
== END 2016-09-14 17:21 | disposition home or self-care (01) | DRG 139 ==
LOC: EDBD 20:08 → EDUNIT# 20:08 → SED 20:08 → MPC 09-11
PROVIDERS: ADMIT Specialist; ATTEND Specialist
PROC: 4A033B1 Measurement of Arterial Pressure, Peripheral, Percutaneous Approach (ICD-10-PCS; principal; 2016-09-11)
DX: J18.9 Pneumonia, unspecified organism (principal); J96.01 Acute respiratory failure with hypoxia; I50.22 Chronic systolic (congestive) heart failure; I24.8 Other forms of acute ischemic heart disease; I25.10 Atherosclerotic heart disease of native coronary artery without angina pectoris; I10 Essential (primary) hypertension; Z87.891 Personal history of nicotine dependence; E78.5 Hyperlipidemia, unspecified; I25.2 Old myocardial infarction; Z95.5 Presence of coronary angioplasty implant and graft